=== PATIENT | female | born 1995 | race Caucasian/White ===

== ENCOUNTER → 2018-01-17 11:33 | Outpatient (CLI) | payer OTHER, SELFPAY ==
[2018-01-17 12:27] LABS: Add Manual Diff / Slide Review NO; Basophils Percent Auto 0.7 % (0-2); Eosinophils Percent Auto 2.4 % (2-4); Hematocrit 37.8 % (36-46); Hemoglobin 13.1 g/dL (12.0-16.0); Lymphocytes Percent Auto 23.3 % (25-40); Mean Corpuscular HGB Conc 34.5 % (30-36); Mean Corpuscular Hemoglobin 31.1 PG (26-34); Monocytes Percent Auto 7.5 % (3-14); Neutrophils Absolute Auto 6800 /uL (3000-5900); Neutrophils Percent Auto 66.1 % (50-75); Platelet Count 274 X10^3/uL (150-400); Red Cell Distribution Width 12.8 % (11.6-14.8); White Blood Cell Count 10.3 X10^3/uL (4.5-11.0)
[2018-01-17 16:52] LABS: Hepatitis B Surface Antigen NEGATIVE s/c (NEGATIVE); Rubella Antibody IgG 5.4 IU/mL (>15)
[2018-01-17 17:11] LABS: HIV 1 and 2 Antibody NEGATIVE (NEGATIVE); Hep C Virus Ab w/Reflex Quant NEGATIVE s/c (NEGATIVE)
[2018-01-19 14:20] LABS: HSV 2 IGG AB < 0.90 index (< 0.90); HSV1IGG < 0.90 index (< 0.90)
[2018-01-21 18:20] LABS: Rapid Plasma Reagin NON-REACTIVE
== END ==
PROVIDERS: Visit Provider Family Medicine
DX: Z34.91 Encounter for supervision of normal pregnancy, unspecified, first trimester (principal)
CPT/HCPCS: 36415; 80055; 86695; 86696; 86703; 86787; 86803; 86850; 86900; 86901; 87077; 87086

== ENCOUNTER → 2018-01-31 09:12 | Outpatient (CLI) | payer OTHER, SELFPAY ==
--- NOTE | 2018-01-31 09:15 | DI.US.S_ITS ---
PROCEDURE: US OB LIMITED INDICATIONS: INITIAL SIZING AND DATING OUTSIDE/PRIOR DATING DATA: Last menstrual period (LMP): 10/17/17. LMP-based estimated date of delivery (MIRYAM): 07/24/17 . First dating scan (date and location): 01/31/18 . Estimated date of delivery (MIRYAM) from first dating scan: 07/28/18 TECHNIQUE: Real-time scanning was performed of the fetus, with image documentation. COMPARISON: [facility], US, OB <= 14 WEEKS FETUS, 01/20/2018, 10:54. FINDINGS: A single living intrauterine gestation is present. Presentation: Transverse. Placenta: Placental position is posterior, without previa. Amniotic fluid index: 8.9 cm, normal range is 5-24 cm. heart rate: 153 beats per minute. Maternal cervical canal: 4.3 cm long. Normal lower limit is 2.5 cm. Estimated gestational age from initial scan: 14 weeks 4 days . IMPRESSION: 1. Single, live intrauterine with ultrasound gestational age of 14 weeks 4 days, with ultrasound MIRYAM 07/28/18. 2. Followup ultrasound at 20-22 weeks for dates anatomy. Dictated by: Shagufta Cifuentes M.D. on 01/31/2018 at 11:42 Approved by: Shagufta Cifuentes M.D. on 01/31/2018 at 11:50
== END ==
PROVIDERS: Family Provider Obstetrics & Gynecology; PCP Family Medicine; Visit Provider Family Medicine
DX: Z34.92 Encounter for supervision of normal pregnancy, unspecified, second trimester (principal); Z3A.14 14 weeks gestation of pregnancy
CPT/HCPCS: 76815

== ENCOUNTER → 2018-03-01 12:45 | Outpatient (CLI) | payer OTHER, SELFPAY ==
--- NOTE | 2018-03-01 12:47 | DI.US.S_ITS ---
PROCEDURE: US OB >= 14 WEEKS FETUS INDICATIONS: Anatomy Scan OUTSIDE/PRIOR DATING DATA: Last menstrual period (LMP): 10/17/17. LMP-based estimated date of delivery (MIRYAM): 07/24/17 . First dating scan (date and location): 01/31/18 . Estimated date of delivery (MIRYAM) from first dating scan: 07/28/18. TECHNIQUE: Real-time scanning was performed of the fetus, with image documentation and biometric measurements. Endovaginal scanning: No COMPARISON: [facility], OB LIMITED, 01/31/2018, 9:28. [facility], OB <= 14 WEEKS FETUS, 01/20/2018, 10:54. [facility], ABDOMEN COMPLETE, 10/01/2015, 11:09. [facility], OB COMPLETE LESS THAN 14 WKS, 05/08/2015, 8:22. FINDINGS: General: A single living intrauterine gestation is present. Presentation: Breech. Placenta: Placental position is posterior, without previa. Amniotic fluid index: 12.3 cm, normal range is 5-24 cm. heart rate: 145 beats per minute. Maternal cervical canal: 3.4 cm long. biometrics: Biparietal diameter: 18 weeks 6 days Head circumference: 18 weeks 5 days Abdominal circumference: 18 weeks 5 days Femur length: 18 weeks 3 days Estimated gestational age from initial scan: 18 weeks 5 days Composite gestational age from present scan: 18 weeks 5 days Estimated weight and percentile: 247 g; 37 percentile Measurement variability for biometric dating: +/- 7 days from 14 weeks to 15 weeks 6 days gestation, +/- 10 days from 16 weeks to 21 weeks 6 days gestation, +/- 2 weeks from 22 weeks to 27 weeks 6 days gestation, +/- 3 weeks for 28 weeks gestation or later. weight reference: 4500 g or EFW >90/95% is considered macrosomia or large for gestational age. EFW <10% is small for gestational age. EFW 5% or less is considered intra-uterine growth restriction. Anatomic survey: Neuro: Cisterna magna is normal at 3 mm. Cerebellum is normal in size and morphology. Nuchal skin fold: Not well-seen on this exam. Face: Nose and lips, facial profile are normal. Spine: Imaged portions of the spine demonstrate no evidence for spina bifida. Heart: 4-chambered heart is present, with normal left ventricular outflow tract. Right ventricle outflow tract not well assessed on this exam. Diaphragm: Image diaphragm is intact. Stomach: Left-sided stomach is present. Bladder and kidneys: Not well-seen on this exam. Extremities: All 4 extremities identified. IMPRESSION: Single living intrauterine demonstrating adequate interval growth. Dictated by: [facility] Interpreted: Michael Wooten MD on 03/01/2018 at 15:46 Approved by: Michael Wooten M.D. on 03/01/2018 at 19:19
== END ==
PROVIDERS: PCP Family Medicine; Visit Provider Family Medicine
DX: Z34.92 Encounter for supervision of normal pregnancy, unspecified, second trimester (principal); Z3A.18 18 weeks gestation of pregnancy
CPT/HCPCS: 76811

== ENCOUNTER → 2019-08-17 11:15 | Outpatient (CLI) | payer OTHER, SELFPAY ==
[2019-08-17 12:15] LABS: Add Manual Diff / Slide Review NO; Basophils Absolute Auto 100 /uL (0-100); Basophils Percent Auto 0.5 % (0-2); Eosinophils Absolute Auto 100 /uL (0-450); Eosinophils Percent Auto 1.1 % (2-4); Hemoglobin 13.2 g/dL (12.0-16.0); Lymphocytes Absolute Auto 2700 /uL (1100-4500); Lymphocytes Percent Auto 28.1 % (25-40); Mean Corpuscular HGB Conc 34.7 % (30-36); Mean Corpuscular Hemoglobin 31.4 PG (26-34); Mean Corpuscular Volume 90.3 fL (80-100); Monocytes Absolute Auto 700 /uL (0-900); Monocytes Percent Auto 6.8 % (3-14); Neutrophils Absolute Auto 6000 /uL (1500-7000); Neutrophils Percent Auto 63.5 % (50-75); Platelet Count 296 X10^3/uL (150-400); Red Blood Cell Count 4.21 X10^6/uL (4.0-5.2); Red Cell Distribution Width 12.9 % (11.6-14.8); White Blood Cell Count 9.5 X10^3/uL (4.5-11.0)
[2019-08-17 14:56] LABS: Appearance Urine UA CLEAR; Bilirubin Urine UA NEGATIVE (NEGATIVE); Color Urine UA YELLOW; Glucose Urine UA NEGATIVE (Negative); Ketones Urine UA NEGATIVE (NEGATIVE); Leukocyte Esterase Urine UA NEGATIVE (NEGATIVE); Nitrite Urine UA NEGATIVE (Negative); Occult Blood Urine UA NEGATIVE (Negative); Protein Urine UA NEGATIVE (Negative); Urobilinogen Urine UA 0.2 E.U./dL (0.2)
[2019-08-17 14:58] LABS: pH Urine UA 5.5 (4.5-8.0)
[2019-08-17 16:25] LABS: Hepatitis B Surface Antigen NEGATIVE s/c (NEGATIVE); Rubella Antibody IgG 3.9 IU/mL (>15)
[2019-08-17 16:39] LABS: HIV 1 & 2 Ab/Ag 4th Gen Combo NEGATIVE (NEGATIVE); Hep C Virus Ab w/Reflex Quant NEGATIVE s/c (NEGATIVE)
[2019-08-19 20:33] LABS: RPR Screen Nonreactive (Nonreactive)
== END ==
PROVIDERS: PCP Family Medicine; Referring Provider Family Medicine; Visit Provider Family Medicine
DX: Z34.81 Encounter for supervision of other normal pregnancy, first trimester (principal)
CPT/HCPCS: 36415; 80055; 81003; 86787; 86803; 86850; 86900; 86901; 87086; 87389

== ENCOUNTER 2019-08-24 10:27 | Emergency (ER) | payer OTHER, SELFPAY ==
[2019-08-24 10:36] VITALS: BP 105/57; PULSE 109; RESP 16; TEMP 37.6; O2SAT 100; BMI 26.5
[2019-08-24 10:44] LABS: Add Manual Diff / Slide Review NO; Basophils Absolute Auto 0 /uL (0-100); Basophils Percent Auto 0.3 % (0-2); Eosinophils Absolute Auto 100 /uL (0-450); Eosinophils Percent Auto 1.1 % (2-4); Hematocrit 36.9 % (36-46); Lymphocytes Absolute Auto 600 /uL (1100-4500); Lymphocytes Percent Auto 8.2 % (25-40); Mean Corpuscular HGB Conc 35.2 % (30-36); Mean Corpuscular Hemoglobin 31.1 PG (26-34); Mean Corpuscular Volume 88.5 fL (80-100); Monocytes Absolute Auto 900 /uL (0-900); Monocytes Percent Auto 12.6 % (3-14); Neutrophils Absolute Auto 5300 /uL (1500-7000); Neutrophils Percent Auto 77.8 % (50-75); Platelet Count 235 X10^3/uL (150-400); Red Blood Cell Count 4.18 X10^6/uL (4.0-5.2); Red Cell Distribution Width 13.3 % (11.6-14.8); White Blood Cell Count 6.8 X10^3/uL (4.5-11.0)
[2019-08-24] MEDS: SODIUM CHLORIDE 0.9% 1,000 ML 1000 ML IV ×2 (10:51→12:13)
[2019-08-24] MEDS: ONDANSETRON 4 MG/2 ML INJ IV (10:51)
[2019-08-24 10:56] LABS: Blood Urea Nitrogen 6 mg/dL (7-17); Calcium 9.4 mg/dL (8.4-10.2); Carbon Dioxide 20 mmol/L (22-32); Chloride 105 mmol/L (98-107); Estimated Glomerular Filt Rate > 60.0 mL/min (>60); Glucose 92 mg/dL (70-100); HEMOLYSIS < 15 (0-50); Potassium 3.8 mmol/L (3.4-5.1); Sodium 137 mmol/L (137-145)
[2019-08-24 10:58] LABS: Ketones (Beta-Hydroxybutyrate) 0.09 mmol/L (<0.27)
[2019-08-24 11:50] VITALS: BP 98/54; PULSE 107; RESP 20; O2SAT 97
[2019-08-24 12:20] VITALS: BP 99/51; PULSE 104; RESP 16; O2SAT 99
--- NOTE | 2019-08-24 13:46 | ED_ITS ---
HPI - General Chief complaint: OB/Uterine Contractions Stated complaint: 11 weeks,nausea/shaking/dry heaving Time Seen by Provider: 08/24/19 10:30 Source: patient Mode of arrival: Family Vehicle Limitations: no limitations History of Present Illness HPI Narrative: 24-year-old female nonsmoker is a at 11 weeks with persistent nausea and occasional vomiting. She has had a poor appetite feels a bit fatigued but is not profoundly dizzy, weak or lightheaded. Her primary care provider sent her here for evaluation of dehydration and IV fluid administration. She denies any abdominal pain, pelvic pain nor vaginal bleeding or discharge. She has no dysuria, frequency or urgency Onset (ago): day(s) Associated symptoms: nausea and vomiting Vaginal discharge: none Vaginal bleeding: none Related Data Home Medications Medication Instructions Recorded Confirmed prenat.vits,meir,[id number] 1 tab PO DAILY 08/06/19 08/24/19 doxylamine succinate [Unisom 25 mg PO BEDTIME PRN 08/24/19 08/24/19 (doxylamine)] vitamin B complex 1 tab PO BEDTIME 08/24/19 08/24/19 Previous Rx's Medication Instructions Recorded ondansetron 4 mg PO TID-QID PRN #10 tab 08/24/19 ondansetron 4 mg disintegrating 4 mg PO Q6H PRN #30 tab 08/24/19 tablet Allergies Allergy/AdvReac Type Severity Reaction Status Date / Time Sulfa (Sulfonamide Allergy Intermediate Hives Verified 08/24/19 10:43 Antibiotics) [SULFA (SULFONAMIDE ANTIBIOTICS)] albuterol Allergy Mild Hyperventil Verified 08/24/19 10:43 ates caffeine Allergy Mild Very mild Verified 08/24/19 10:43 - has some now and then lactose Allergy Mild GI Upset Verified 08/24/19 10:43 Review of Systems Constitutional Constitutional: Denies chills, Denies fatigue, Denies fever(s), Denies frequent falls, Denies lethargy and Denies weakness Eyes Eyes: Denies change in vision, Denies eye discharge, Denies irritation and D enies loss of vision ENT Ears, Nose, Mouth, and Throat: Denies change in voice, Denies dizziness, Denies neck pain, Denies sore throat and Denies throat swelling Cardiovascular Cardiovascular: Denies chest pain, Denies irregular heart rhythm, Denies lightheadedness, Denies palpitations, Denies dyspnea, Denies dyspnea on exertion and Denies orthopnea Respiratory Respiratory: Denies cough, Denies dyspnea, Denies dyspnea on exertion and Denies wheezing Gastrointestinal Gastrointestinal: Denies abdominal pain, Denies change in bowel habits, Denies diarrhea, Denies nausea and Denies vomiting Genitourinary Genitourinary: Denies hematuria, Denies flank pain, Denies urinary incontinence and Denies urinary urgency Musculoskeletal Musculoskeletal: Denies back pain, Denies muscle weakness, Denies neck pain, De nies numbness and Denies tingling Integumentary/Breasts Skin/Breast: Denies pruritus, Denies erythema, Denies rash and Denies wounds Neurologic Neurologic: Denies behavioral changes, Denies confusion, Denies dizziness, Denies frequent falls, Denies loss of vision, Denies numbness, Denies tingling and Denies weakness Psychiatric Psychiatric: Denies anxiety, Denies behavioral changes, Denies confusion, Denies depression, Denies homicidal ideation and Denies suicidal ideation Endocrine Endocrine: Denies fatigue, Denies flushing and Denies palpitations Hematologic/Lymphatic Hematologic/Lymphatic: Denies easy bruising Allergic/Immunologic Allergic/Immunologic: Denies urticaria, Denies throat swelling and Denies wheezing Exam Narrative Exam Narrative: GENERAL: [24] year old patient appears stated age. Well- nourished, well-developed patient, in mild distress. HEAD: Atraumatic. Normocephalic. EYES: Pupils equal round and reactive. Extraocular motions intact. No scleral icterus. No injection or drainage. ENT: Tacky mucous membranes Nose without bleeding, purulent drainage. Throat without erythema, tonsillar hypertrophy or exudate. Airway patent. NECK: Trachea midline. Non tender CARDIOVASCULAR: Regular rate and rhythm without murmurs, gallops, or rubs. RESPIRATORY: Clear to auscultation. Breath sounds equal bilaterally. No wheezes, rales, or rhonchi. GASTROINTESTINAL: Abdomen soft, non-tender, nondistended. EXTREMITIES: No edema or joint tenderness. BACK: Nontender without deformity or crepitance. No flank tenderness. NEURO: AOx3. SKIN: No rash or erythema of visible areas Initial Vital Signs Initial Vital Signs: Vital Signs Temperature 99.7 F H 08/24/19 10:36 Pulse Rate 109 H 08/24/19 10:36 Respiratory Rate 16 08/24/19 10:36 Blood Pressure 105/57 L 08/24/19 10:36 Pulse Oximetry 100 08/24/19 10:36 Course Orders Ordered: ED Orders 08/24/19 10:33 Basic Metabolic Panel Stat Complete Blood Count AUTO DIFF Stat Ketones (Beta-Hydroxybutyrate) Stat Discontinued Medications Sodium Chloride (Normal Saline 0.9%) 1,000 mls @ 1,000 mls/hr IV BOLUS ONE Stop: 08/24/19 11:50 Last Infusion: 08/24/19 12:07 Dose: 0 mls/hr Documented by: Admin: 08/24/19 10:51 Dose: 1,000 mls/hr Documented by: ELIZABETH Sodium Chloride (Normal Saline 0.9%) 1,000 mls @ 1,000 mls/hr IV BOLUS ONE Stop: 08/24/19 13:06 Last Infusion: 08/24/19 13:15 Dose: 0 mls/hr Documented by: Admin: 08/24/19 12:13 Dose: 1,000 mls/hr Documented by: EILZABETH Ondansetron HCl (Zofran) 4 mg IV NOW ONE Stop: 08/24/19 10:34 Last Admin: 08/24/19 10:51 Dose: 4 mg Documented by: ELIZABETH Vital Signs Vital signs: Vital Signs - 8 hr 08/24/19 11:50 08/24/19 12:20 08/24/19 14:10 Pulse Rate 107 H 104 H 96 H Respiratory Rate 20 16 18 Blood Pressure 95/53 L Blood Pressure [Right Arm] 98/54 L 99/51 L Pulse Oximetry 97 99 100 MDM - OB/Uterine Contractions Lab Data Result diagrams: 08/24/19 10:33 08/24/19 10:33 Labs: Lab Results 08/24/19 08/24/19 Range/Units 10:33 10:33 WBC 6.8 (4.5-11.0) X10^3/uL RBC 4.18 (4.0-5.2) X10^6/uL Hgb 13.0 (12.0-16.0) g/dL Hct 36.9 (36-46) % MCV 88.5 (80-100) fL MCH 31.1 (26-34) PG MCHC 35.2 (30-36) % RDW 13.3 (11.6-14.8) % Plt Count 235 (150-400) X10^3/uL Neut % (Auto) 77.8 H (50-75) % Lymph % (Auto) 8.2 L (25-40) % [place] % (Auto) 12.6 (3-14) % Eos % (Auto) 1.1 L (2-4) % Baso % (Auto) 0.3 (0-2) % Neut # (Auto) 5300 (7208-1870) /uL Lymph # (Auto) 600 L (1677-8119) /uL [place] # (Auto) 900 (0-900) /uL Eos # (Auto) 100 (0-450) /uL Baso # (Auto) 0 (0-100) /uL Sodium 137 (137-145) mmol/L Potassium 3.8 (3.4-5.1) mmol/L Chloride 105 (98-107) mmol/L Carbon Dioxide 20 L (22-32) mmol/L BUN 6 L (7-17) mg/dL Creatinine 0.50 L (0.52-1.04) mg/dL Estimated GFR > 60.0 (>60) mL/min BUN/Creatinine Ratio 12.0 (6-22) Glucose 92 (70-100) mg/dL Calcium 9.4 (8.4-10.2) mg/dL Ketones 0.09 (<0.27) mmol/L Urine Dip Bedside Urine Glucose Negative Bedside Urine Bilirubin - Negative Bedside Urine Ketone +++ 80 Urine Specific [place] 1.020 Bedside Urine Occult Blood - Negative Bedside Urine pH 7.0 Bedside Urine Protein +/- 15 Bedside Urine Urobilinogen +/- 1mg Bedside Urine Nitrite - Negative Bedside Urine Leukocytes - Negative Esterase Discharge Plan Departure Patient Disposition: Home Clinical Impression: Vomiting Qualifiers: Vomiting type: unspecified Vomiting Intractability: intractable Nausea presence: with nausea Qualified Code(s): R11.2 - Nausea with vomiting, unspecified Discharge Date/Time: 08/24/19 14:10 Instructions: DI for Hyperemesis Gravidarum, DI for -- Discomforts and Remedies Activity Restrictions/Additional Instructions: 1. Drink plenty of fluids with frequent small sips. 2. For the next 24 hours a clear liquid diet is advised. After that please employ a brat diet which would include bananas, rice, apples, toast. 3. Please take medications as directed. Anti vomiting medication to [facility] in [place] 4. Please follow-up with your doctor in the next 1-2 days. Call the office for an appointment. 5. Please return to the emergency Department for any worsening or persistent symptoms, such as increasing pain or fever. Prescriptions: New ondansetron 4 mg tablet,disintegrating 4 mg PO TID-QID PRN (Reason: nausea and vomiting) Qty: 10 RF: 0 No Action ondansetron 4 mg tablet,disintegrating 4 mg PO Q6H PRN (Reason: nausea and vomiting) Qty: 30 RF: 3 prenat.vits,meir,[id number] Tablet 1 tab PO DAILY RF: 0 vitamin B complex Tablet 1 tab PO BEDTIME RF: 0 Unisom (doxylamine) 25 mg Tablet 25 mg PO BEDTIME PRN (Reason: Nausea) RF: 0 Referrals: Ruma Watkins MD [Primary Care Provider] -
[2019-08-24 14:10] VITALS: BP 95/53; PULSE 96; RESP 18; O2SAT 100
== END 2019-08-24 14:10 | disposition home or self-care (01) ==
PROVIDERS: Emergency Provider Emergency Medicine; PCP Family Medicine
DX: O26.891 Other specified pregnancy related conditions, first trimester (principal); R11.2 Nausea with vomiting, unspecified; Z3A.11 11 weeks gestation of pregnancy
CPT/HCPCS: 36415; 80048; 81003; 82009; 85025; 96361; 96374; 99284; J2405

== ENCOUNTER 2019-08-25 08:46 | Emergency (ER) | payer OTHER, SELFPAY ==
[2019-08-25 09:36] VITALS: BP 96/54; PULSE 123; RESP 14; TEMP 37.7; O2SAT 99
[2019-08-25] MEDS: SODIUM CHLORIDE 0.9% 1,000 ML 1000 ML IV (09:50)
[2019-08-25 10:05] LABS: Influenza A - CEPHEID Flu A POSITIVE (NEGATIVE); Influenza B - CEPHEID Flu B NEGATIVE (NEGATIVE)
--- NOTE | 2019-08-25 10:11 | ED_ITS ---
HPI - Fever General Chief Complaint: Fever Stated Complaint: Sent from [facility], fever,headache, sore throat Time Seen by Provider: 08/25/19 08:52 Source: patient and family Mode of arrival: Ambulatory Limitations: no limitations History of Present Illness HPI Narrative: 24-year-old female nonsmoker at 11 weeks returns for worsening symptoms. She was seen yesterday for nausea and some questionable dehydration and had a reassuring workup, received 2 L of fluid felt better and went home. Over the course of the night she developed a fever as high as 102 with dry hacking cough sore throat and body aches. She presented to the walk-in clinic today and was sent here for further evaluation. She denies any vomiting, abdominal pain or diarrhea. She has no vaginal bleeding or discharge. She has no suprapubic tenderness or flank pain. She denies dysuria, frequency or urgency. MD complaint: fever and malaise Onset (ago): hour(s) Maximum Temperature: 102.4 F Temperature Source: oral Associated symptoms: chills, myalgias, headache, sore throat and cough Relieving factors: nothing Exacerbating factors: nothing Treatments prior to arrival fever: acetaminophen Related Data Home Medications Medication Instructions Recorded Confirmed prenat.vits,meir,[id number] 1 tab PO DAILY 08/06/19 08/24/19 doxylamine succinate [Unisom 25 mg PO BEDTIME PRN 08/24/19 08/24/19 (doxylamine)] vitamin B complex 1 tab PO BEDTIME 08/24/19 08/24/19 Previous Rx's Medication Instructions Recorded ondansetron 4 mg PO TID-QID PRN #10 tab 08/24/19 ondansetron 4 mg disintegrating 4 mg PO Q6H PRN #30 tab 08/24/19 tablet oseltamivir [Tamiflu] 75 mg PO BID 5 Days #10 cap 08/25/19 Allergies Allergy/AdvReac Type Severity Reaction Status Date / Time Sulfa (Sulfonamide Allergy Intermediate Hives Verified 08/24/19 10:43 Antibiotics) [SULFA (SULFONAMIDE ANTIBIOTICS)] albuterol Allergy Mild Hyperventil Verified 08/24/19 10:43 ates caffeine Allergy Mild Very mild Verified 08/24/19 10:43 - has some now and then lactose Allergy Mild GI Upset Verified 08/24/19 10:43 Review of Systems Constitutional Constitutional: Reports chills, Denies fatigue, Reports fever(s), Denies frequent falls, Reports headache(s), Denies lethargy and Denies weakness Eyes Eyes: Denies change in vision, Denies eye discharge, Denies irritation and Denies loss of vision ENT Ears, Nose, Mouth, and Throat: Denies change in voice, Denies dizziness, Reports headache(s), Reports sore throat and Denies throat swelling Cardiovascular Cardiovascular: Denies chest pain, Denies irregular heart rhythm, Denies lightheadedness, Denies palpitations, Denies dyspnea, Denies dyspnea on exertion and Denies orthopnea Respiratory Respiratory: Reports cough, Denies dyspnea, Denies dyspnea on exertion and Denies wheezing Gastrointestinal Gastrointestinal: Denies abdominal pain, Denies change in bowel habits, Denies diarrhea, Denies nausea and Denies vomiting Genitourinary Genitourinary: Denies hematuria, Denies flank pain, Denies urinary incontinence and Denies urinary urgency Musculoskeletal Musculoskeletal: Denies back pain, Denies muscle weakness, Denies numbness and Denies tingling Integumentary/Breasts Skin/Breast: Denies pruritus, Denies erythema, Denies rash and Denies wounds Neurologic Neurologic: Denies behavioral changes, Denies confusion, Denies dizziness, Denies frequent falls, Reports headache(s), Denies loss of vision, Denies numbness, Denies tingling and Denies weakness Psychiatric Psychiatric: Denies anxiety, Denies behavioral changes, Denies confusion, Denies depression, Denies homicidal ideation and Denies suicidal ideation Endocrine Endocrine: Denies fatigue, Denies flushing and Denies palpitations Hematologic/Lymphatic Hematologic/Lymphatic: Denies easy bruising Allergic/Immunologic Allergic/Immunologic: Denies urticaria, Denies throat swelling and Denies wheezing Patient History Medical History Anxiety (Acute) Constipation (Acute) Lactose intolerance (Acute) Family History Mother Gestational diabetes Family/Other Gestational diabetes Grandmother Non Hodgkin's lymphoma Grandfather Colon cancer Family/Other Cancer of kidney Family/Other Melanoma Father PTSD (post-traumatic stress disorder) Brother Depression Anxiety ADHD Eczema Sister Eczema Social History marital status: household members: spouse, family and children education level: high school (wants to go to Nursing School) occupational status: unemployed and previously employed ([employer] ) current occupational exposures/hazards: No special lorraine needs: No Smoking Status: Never smoker Smoking Status: Never smoker alcohol intake frequency: 0-2 drinks per day Substance Use Type: does not use Exam Narrative Exam Narrative: GENERAL: [24] year old patient appears stated age. Well- nourished, well-developed patient, in mild distress. HEAD: Atraumatic. Normocephalic. EYES: Pupils equal round and reactive. Extraocular motions intact. No scleral icterus. No injection or drainage. ENT: Moist mucous membranes Nose without bleeding, purulent drainage. Throat with mild erythema, but no tonsillar hypertrophy or exudate. Airway patent. NECK: Trachea midline. Non tender CARDIOVASCULAR: Tachycardic with regular rhythm without murmurs, gallops, or rubs. RESPIRATORY: Clear to auscultation. Breath sounds equal bilaterally. No wheezes, rales, or rhonchi. GASTROINTESTINAL: Abdomen soft, non-tender, nondistended. EXTREMITIES: No edema or joint tenderness. BACK: Nontender without deformity or crepitance. No flank tenderness. NEURO: AOx3. SKIN: No rash or erythema of visible areas Initial Vital Signs Initial Vital Signs: Vital Signs Temperature 99.8 F H 08/25/19 09:36 Pulse Rate 123 H 08/25/19 09:36 Respiratory Rate 14 08/25/19 09:36 Blood Pressure 96/54 L 08/25/19 09:36 Pulse Oximetry 99 08/25/19 09:36 Course Orders Ordered: ED Orders 08/25/19 09:30 Influenza A & B (PCR) Stat 08/25/19 09:50 Basic Metabolic Panel Stat Complete Blood Count AUTO DIFF Stat 08/25/19 10:14 Throat Culture Stat 08/25/19 10:18 Lactate (Lactic Acid) Stat 08/25/19 10:30 Urine Microscopic Stat Discontinued Medications Sodium Chloride (Normal Saline 0.9%) 1,000 mls @ 1,000 mls/hr IV BOLUS ONE Stop: 08/25/19 09:51 Last Infusion: 08/25/19 11:26 Dose: 0 mls/hr Documented by: Admin: 08/25/19 09:50 Dose: 1,000 mls/hr Documented by: PANDA Vital Signs Vital signs: Vital Signs - 8 hr 08/25/19 11:26 Temperature 98.3 F Pulse Rate 93 H Blood Pressure [Left Arm] 92/50 L Pulse Oximetry 99 MDM - Fever Lab Data Result diagrams: 08/25/19 09:50 08/25/19 09:50 Labs: Lab Results 08/25/19 08/25/19 08/25/19 Range/Units 09:30 09:50 09:50 WBC 3.3 L D (4.5-11.0) X10^3/uL RBC 3.51 L (4.0-5.2) X10^6/uL Hgb 11.0 L (12.0-16.0) g/dL Hct 31.4 L (36-46) % MCV 89.4 (80-100) fL MCH 31.4 (26-34) PG MCHC 35.1 (30-36) % RDW 12.9 (11.6-14.8) % Plt Count 175 (150-400) X10^3/uL Neut % (Auto) Not Reportable Lymph % (Auto) Not Reportable [place] % (Auto) Not Reportable Eos % (Auto) Not Reportable Baso % (Auto) Not Reportable Lymph # (Auto) Not Reportable [place] # (Auto) Not Reportable Baso # (Auto) Not Reportable Total Counted 100 Seg Neutrophils % 76.0 H (38-70) % Lymphocytes % (Manual) 10.0 L (25-45) % Monocytes % (Manual) 14.0 H (2-11) % Neutrophils # (Manual) 2508 L (8336-2829) /uL [place] Cells 1+ H RBC Morphology See below Anisocytosis 1+ H Sodium 135 L (137-145) mmol/L Potassium 3.2 L (3.4-5.1) mmol/L Chloride 105 (98-107) mmol/L Carbon Dioxide 17 L (22-32) mmol/L BUN 7 (7-17) mg/dL Creatinine 0.60 (0.52-1.04) mg/dL Estimated GFR > 60.0 (>60) mL/min BUN/Creatinine Ratio 11.7 (6-22) Glucose 103 H (70-100) mg/dL Lactate (0.7-2.1) mmol/L Calcium 8.7 (8.4-10.2) mg/dL Urine RBC (0-5/HPF) Urine WBC (0-5/HPF) Ur Squamous Epith Cells (0-5/HPF) Urine Bacteria (None) Urine Mucus (Negative) Ur Culture Indicated? Influenza A (RT-PCR) Flu a positive H (NEGATIVE) Influenza B (RT-PCR) Flu b negative (NEGATIVE) 08/25/19 08/25/19 Range/Units 10:18 10:30 WBC (4.5-11.0) X10^3/uL RBC (4.0-5.2) X10^6/uL Hgb (12.0-16.0) g/dL Hct (36-46) % MCV (80-100) fL MCH (26-34) PG MCHC (30-36) % RDW (11.6-14.8) % Plt Count (150-400) X10^3/uL Neut % (Auto) Lymph % (Auto) [place] % (Auto) Eos % (Auto) Baso % (Auto) Lymph # (Auto) [place] # (Auto) Baso # (Auto) Total Counted Seg Neutrophils % (38-70) % Lymphocytes % (Manual) (25-45) % Monocytes % (Manual) (2-11) % Neutrophils # (Manual) (5901-1176) /uL [place] Cells RBC Morphology Anisocytosis Sodium (137-145) mmol/L Potassium (3.4-5.1) mmol/L Chloride (98-107) mmol/L Carbon Dioxide (22-32) mmol/L BUN (7-17) mg/dL Creatinine (0.52-1.04) mg/dL Estimated GFR (>60) mL/min BUN/Creatinine Ratio (6-22) Glucose (70-100) mg/dL Lactate 0.8 (0.7-2.1) mmol/L Calcium (8.4-10.2) mg/dL Urine RBC None seen (0-5/HPF) Urine WBC 5-10/hpf H (0-5/HPF) Ur Squamous Epith Cells 5-10 /hpf H (0-5/HPF) Urine Bacteria None seen (None) Urine Mucus 3+ H (Negative) Ur Culture Indicated? Cult not indicated Influenza A (RT-PCR) (NEGATIVE) Influenza B (RT-PCR) (NEGATIVE) Point of Care Testing Rapid Strep A Negative Urine Dip Bedside Urine Glucose Negative Bedside Urine Bilirubin - Negative Bedside Urine Ketone +++ 80 Urine Specific [place] 1.030 Bedside Urine Occult Blood - Negative Bedside Urine pH 5.5 Bedside Urine Protein + 30 Bedside Urine Urobilinogen +/- 1mg Bedside Urine Nitrite - Negative Bedside Urine Leukocytes - Negative Esterase Discharge Plan Departure Patient Disposition: Home Clinical Impression: Influenza A Discharge Date/Time: 08/25/19 11:32 Instructions: DI for Influenza -- Adult Activity Restrictions/Additional Instructions: *You have been diagnosed with [influenza a] *What to do: *Take medications as directed: Tamiflu sent to [facility] *Follow up with your primary care provider in 2-3 days, call for an appointment. Let them know you were seen in the Emergency Department and that we ask that you be seen in follow up *Return to ER if you should have any new, worsening or concerning symptoms Prescriptions: New oseltamivir [Tamiflu] 75 mg capsule 75 mg PO BID 5 Days Qty: 10 RF: 0 No Action ondansetron 4 mg tablet,disintegrating 4 mg PO Q6H PRN (Reason: nausea and vomiting) Qty: 30 RF: 3 prenat.vits,meir,[id number] Tablet 1 tab PO DAILY RF: 0 vitamin B complex Tablet 1 tab PO BEDTIME RF: 0 Unisom (doxylamine) 25 mg Tablet 25 mg PO BEDTIME PRN (Reason: Nausea) RF: 0 ondansetron 4 mg tablet,disintegrating 4 mg PO TID-QID PRN (Reason: nausea and vomiting) Qty: 10 RF: 0 Referrals: Ruma Watkins MD [Primary Care Provider] -
[2019-08-25 10:16] LABS: Hematocrit 31.4 % (36-46); Mean Corpuscular HGB Conc 35.1 % (30-36); Mean Corpuscular Hemoglobin 31.4 PG (26-34); Mean Corpuscular Volume 89.4 fL (80-100); Platelet Count 175 X10^3/uL (150-400); Red Blood Cell Count 3.51 X10^6/uL (4.0-5.2); Red Cell Distribution Width 12.9 % (11.6-14.8); White Blood Cell Count 3.3 X10^3/uL (4.5-11.0)
[2019-08-25 10:17] LABS: Add Manual Diff / Slide Review YES
[2019-08-25 10:18] LABS: BUN Creatinine Ratio 11.7 (6-22); Blood Urea Nitrogen 7 mg/dL (7-17); Calcium 8.7 mg/dL (8.4-10.2); Carbon Dioxide 17 mmol/L (22-32); Chloride 105 mmol/L (98-107); Estimated Glomerular Filt Rate > 60.0 mL/min (>60); Glucose 103 mg/dL (70-100); HEMOLYSIS < 15 (0-50); Potassium 3.2 mmol/L (3.4-5.1); Sodium 135 mmol/L (137-145)
--- NOTE | 2019-08-25 10:30 | PC.NURSE ---
pt 11 wks ,here yesterday for nausea/vomiting. Today she has a fever,denies cough or sore throat. Pt nauseated today with fever and not feeling well at all.
[2019-08-25 10:44] LABS: Lactate (Lactic Acid) 0.8 mmol/L (0.7-2.1)
[2019-08-25 10:51] LABS: Bacteria Urine None Seen; RBC Urine None Seen (0-5/HPF)
[2019-08-25 10:58] LABS: Culture Indicated Urine Cult Not Indicated; Mucus Urine 3+ (Negative); Squamous Epithelial Cell Urine 5-10 /HPF (0-5/HPF); WBC Urine 5-10/HPF (0-5/HPF)
[2019-08-25 11:26] VITALS: BP 92/50; PULSE 93; TEMP 36.8; O2SAT 99
[2019-08-25 12:03] LABS: Neutrophils Absolute Manual 2508 /uL (3000-5900); Smudge Cells 1+; Total Cells Counted 100
[2019-08-25 12:04] LABS: Anisocytosis 1+
== END 2019-08-25 11:32 | disposition home or self-care (01) ==
PROVIDERS: Emergency Provider Emergency Medicine; PCP Family Medicine
DX: J10.1 Influenza due to other identified influenza virus with other respiratory manifestations (principal)
CPT/HCPCS: 36415; 80048; 81003; 81015; 83605; 85025; 87040; 87070; 87077; 87147; 87502; 87880; 96360; 96361; 99284

== ENCOUNTER 2019-09-17 21:17 | Emergency (ER) | payer OTHER, SELFPAY ==
[2019-09-17 21:31] VITALS: BP 116/75; PULSE 63; RESP 18; TEMP 36.8; O2SAT 100; BMI 25.7
--- NOTE | 2019-09-17 21:31 | ED.GENADULT ---
HPI - General Adult General Chief complaint: Chest Pain Stated complaint: CHEST PAIN TOWARDS BACK AND STOMACH 14 WKS PREGNAN Time Seen by Provider: 09/17/19 21:27 Source: patient Mode of arrival: Ambulatory Limitations: no limitations History of Present Illness HPI narrative: Patient is a 14 week female here for evaluation of pain in her back radiating around to the front. She states the symptoms were fairly sudden onset. She was eating at the time. Occurred just prior to arrival. Has never had anything like this in the past. No vaginal bleeding or discharge. No urinary symptoms. Some nausea but no vomiting. No fevers. Has not tried anything for symptoms prior to arrival Related Data Home Medications Medication Instructions Recorded Confirmed prenat.vits,meir,[id number] 1 tab PO DAILY 08/06/19 08/24/19 doxylamine succinate [Unisom 25 mg PO BEDTIME PRN 08/24/19 08/24/19 (doxylamine)] vitamin B complex 1 tab PO BEDTIME 08/24/19 08/24/19 Previous Rx's Medication Instructions Recorded ondansetron 4 mg disintegrating 4 mg PO Q6H PRN #30 tab 08/24/19 tablet oseltamivir [Tamiflu] 75 mg PO BID 5 Days #10 cap 08/25/19 ondansetron 4 mg disintegrating 4 mg PO TID-QID PRN #10 tab 09/05/19 tablet Allergies Allergy/AdvReac Type Severity Reaction Status Date / Time Sulfa (Sulfonamide Allergy Intermediate Hives Verified 08/24/19 10:43 Antibiotics) [SULFA (SULFONAMIDE ANTIBIOTICS)] albuterol Allergy Mild Hyperventil Verified 08/24/19 10:43 ates caffeine Allergy Mild Very mild Verified 08/24/19 10:43 - has some now and then lactose Allergy Mild GI Upset Verified 08/24/19 10:43 Review of Systems Constitutional Constitutional: Denies fever(s) Cardiovascular Cardiovascular: Reports chest pain and Denies dyspnea Respiratory Respiratory: Denies dyspnea Gastrointestinal Gastrointestinal: Reports abdominal pain, Reports nausea and Denies vomiting Genitourinary Genitourinary: Denies dysuria and Denies vaginal discharge Musculoskeletal Musculoskeletal: Denies myalgias and Denies arthralgias Integumentary/Breasts Skin/Breast: Denies rash Neurologic Neurologic: Denies behavioral changes Psychiatric Psychiatric: Denies behavioral changes Hematologic/Lymphatic Hematologic/Lymphatic: Denies easy bleeding and Denies easy bruising Patient History Medical History Anxiety (Acute) Constipation (Acute) Lactose intolerance (Acute) Social History marital status: household members: spouse, family and children education level: high school (wants to go to Nursing School) occupational status: unemployed and previously employed ([employer] and [employer] ) current occupational exposures/hazards: No special lorraine needs: No Smoking Status: Never smoker Smoking Status: Never smoker alcohol intake frequency: 0-2 drinks per day Substance Use Type: does not use Exam Initial Vital Signs Initial Vital Signs: Vital Signs Temperature 98.3 F 09/17/19 21:31 Pulse Rate 63 09/17/19 21:31 Respiratory Rate 18 09/17/19 21:31 Blood Pressure 116/75 09/17/19 21:31 Pulse Oximetry 100 09/17/19 21:31 Const General: cooperative and comfortable Limitations: mental status not altered HENMT Head: normal to inspection and normocephalic Resp Effort & Inspection: normal respiratory effort Auscultation: clear to auscultation bilaterally Cardio Rate: regular rate Rhythm: regular rhythm GI Inspection: non-distended Palpation: soft and tender (Upper abdomen) Back/Spine/Pelvis Thoracic/Lumbar Spine: No paraspinal tenderness, No thoracic spinal tenderness and No lumbar spinal tenderness Skin Lesions: no lesions Rashes: no rashes Neuro General: alert and awake Cognition: normal cognition Speech: speech normal Extrem General: normal to inspection and capillary refill normal Course Orders Ordered: ED Orders 09/17/19 21:31 EKG-12 Lead Stat 09/17/19 21:35 Complete Blood Count AUTO DIFF Stat Comprehensive Metabolic Panel Stat Lipase Stat 09/17/19 21:39 US abdomen limited Stat Discontinued Medications Hydrocodone Bitart/Acetaminophen (Vicodin 5/325 Prepack) 1 bottle MISC SEEINSTR ONE Stop: 09/18/19 00:17 Last Admin: 09/18/19 00:27 Dose: 1 bottle Documented by: KARI Sodium Chloride (Normal Saline 0.9%) 1,000 mls @ 1,000 mls/hr IV BOLUS ONE Stop: 09/17/19 22:37 Last Infusion: 09/17/19 23:06 Dose: 0 mls/hr Documented by: Admin: 09/17/19 21:54 Dose: 1,000 mls/hr Documented by: KRISTY Morphine Sulfate (Morphine) 4 mg IV NOW ONE Stop: 09/17/19 21:39 Last Admin: 09/17/19 21:55 Dose: 4 mg Documented by: KRISTY Morphine Sulfate (Morphine) 4 mg IV NOW ONE Stop: 09/17/19 22:25 Last Admin: 09/17/19 22:32 Dose: 4 mg Documented by: ELIJAH Ondansetron HCl (Zofran) 4 mg IV NOW ONE Stop: 09/17/19 21:39 Last Admin: 09/17/19 21:54 Dose: 4 mg Documented by: KRISTY Vital Signs Vital signs: Vital Signs - 8 hr 09/17/19 21:31 09/17/19 21:50 09/17/19 22:33 Temperature 98.3 F Pulse Rate 63 85 63 Respiratory Rate 18 24 24 Blood Pressure 116/75 Blood Pressure [Right Arm] 116/70 96/67 Pulse Oximetry 100 99 96 09/18/19 00:41 Temperature Pulse Rate 79 Respiratory Rate 20 Blood Pressure 101/55 L Blood Pressure [Right Arm] Pulse Oximetry 99 Medical Decision Making Lab Data Lab results reviewed: Yes I reviewed the patient's lab results. Result diagrams: 09/17/19 21:35 09/17/19 21:35 Labs: Lab Results 09/17/19 09/17/19 Range/Units 21:35 21:35 WBC 11.7 H (4.5-11.0) X10^3/uL RBC 3.90 L (4.0-5.2) X10^6/uL Hgb 12.1 (12.0-16.0) g/dL Hct 34.6 L (36-46) % MCV 88.8 (80-100) fL MCH 31.0 (26-34) PG MCHC 35.0 (30-36) % RDW 13.3 (11.6-14.8) % Plt Count 282 (150-400) X10^3/uL Neut % (Auto) 57.6 (50-75) % Lymph % (Auto) 32.2 (25-40) % Pierce % (Auto) 8.1 (3-14) % Eos % (Auto) 1.4 L (2-4) % Baso % (Auto) 0.7 (0-2) % Neut # (Auto) 6800 (5787-9878) /uL Lymph # (Auto) 3800 (2529-0368) /uL Pierce # (Auto) 1000 H (0-900) /uL Eos # (Auto) 200 (0-450) /uL Baso # (Auto) 100 (0-100) /uL Sodium 135 L (137-145) mmol/L Potassium 3.7 (3.4-5.1) mmol/L Chloride 102 (98-107) mmol/L Carbon Dioxide 24 (22-32) mmol/L BUN 9 (7-17) mg/dL Creatinine 0.78 (0.52-1.04) mg/dL Estimated GFR > 60.0 (>60) mL/min BUN/Creatinine Ratio 11.5 (6-22) Glucose 107 H (70-100) mg/dL Calcium 9.8 (8.4-10.2) mg/dL Total Bilirubin 0.3 (0.2-1.3) mg/dL AST 25 (14-36) IU/L ALT 37 H (<35) IU/L Alkaline Phosphatase 58 (38-126) U/L Total Protein 7.9 (6.3-8.2) g/dL Albumin 4.6 (3.5-5.0) g/dL Globulin 3.3 (1.7-4.1) g/dL Albumin/Globulin Ratio 1.4 (1.0-2.8) Lipase 86 (23-300) U/L Urine Dip Bedside Urine Glucose Negative Bedside Urine Bilirubin - Negative Bedside Urine Ketone + 15 Urine Specific [place] 1.015 Bedside Urine Occult Blood - Negative Bedside Urine pH 7.5 Bedside Urine Protein +/- 15 Bedside Urine Urobilinogen 1+ 2mg Bedside Urine Nitrite - Negative Bedside Urine Leukocytes - Negative Esterase Point of care testing: Urine Dip Bedside Urine Glucose Negative Bedside Urine Bilirubin - Negative Bedside Urine Ketone + 15 Urine Specific [place] 1.015 Bedside Urine Occult Blood - Negative Bedside Urine pH 7.5 Bedside Urine Protein +/- 15 Bedside Urine Urobilinogen 1+ 2mg Bedside Urine Nitrite - Negative Bedside Urine Leukocytes - Negative Esterase Imaging Data US - abdomen: Radiologist's Impression: Gallbladder stones and sludge with sonographic Chaidez sign. The possibility of cholecystitis is raise. No biliary ductal dilation ECG Data Attestation: I personally reviewed and interpreted this ECG as follows: Prior ECG tracings: not available for review Interpretation: Sinus bradycardia Ventricular rate of 52 Normal axis Normal QRS Normal QTC No ST T wave changes MDM Narrative Medical decision making narrative: Patient reported vast improvement of symptoms after pain medication. She has no symptoms consistent with any pre term labor. Upon further evaluation it does appear that her symptoms are in her upper abdomen. The ultrasound does show gallbladder sludge and gallstones however no signs of wall thickening or common bile duct thickening. Patient did have a sonographic Chaidez sign. Her LFTs are unremarkable. Lipase is unremarkable. I do suspect that her symptoms are biliary colic. Given the fact that she has unremarkable LFTs and no thickening of the gallbladder wall that her symptoms are controlled with medications the patient could be discharged and follow-up as an outpatient to discuss potential surgical interventions. She was given phone number for the surgery group. She was also instructed to contact her OB provider. She was given return precautions and also dietary restrictions. She expressed understanding and agreed. Discharge Plan Departure Patient Disposition: Home Clinical Impression: Biliary colic Discharge Date/Time: 09/18/19 00:45 Instructions: DI for Biliary Colic Activity Restrictions/Additional Instructions: Recommend that tomorrow you contact your OB provider for a follow-up. I also recommend you contact [facility] at [phone]. It does appear that you have gallbladder disease. Recommend that you avoid foods that are high in fat and oil. Use the nausea medication you have at home as needed. Your child is exposed to any medication that you take so we advised that she to limit the amount pain medication that you are taking as much as possible. Return to the emergency department for any new symptoms to include fevers, pain is not controlled with the medicines, inability to tolerate oral intake or any other new or worsening symptoms Prescriptions: No Action ondansetron 4 mg tablet,disintegrating 4 mg PO Q6H PRN (Reason: nausea and vomiting) Qty: 30 RF: 3 ondansetron 4 mg tablet,disintegrating 4 mg PO TID-QID PRN (Reason: nausea and vomiting) Qty: 10 RF: 0 prenat.vits,meir,[id number] Tablet 1 tab PO DAILY RF: 0 oseltamivir [Tamiflu] 75 mg capsule 75 mg PO BID 5 Days Qty: 10 RF: 0 vitamin B complex Tablet 1 tab PO BEDTIME RF: 0 Unisom (doxylamine) 25 mg Tablet 25 mg PO BEDTIME PRN (Reason: Nausea) RF: 0 Referrals: Ruma Watkins MD [Primary Care Provider] -
--- NOTE | 2019-09-17 21:39 | DI.US.S_ITS ---
PROCEDURE: US ABDOMEN LIMITED INDICATIONS: RUQ US EVAL FOR GB PATHOLOGY, RUQ PAIN TECHNIQUE: Real-time focused scanning was performed of the abdomen, with image documentation. COMPARISON: None. FINDINGS: Liver is normal in length 17 cm, and normal in echotexture. No intrahepatic biliary distention is present. Within the gallbladder sludge and small stones are present and there is tenderness during sonographic palpation exactly over the gallbladder. The gallbladder wall, however, is not thickened at 1.5 mm and the gallbladder fossa does not contain abnormal free fluid. IMPRESSION: Sludge and small stones are present within the gallbladder lumen, but no definite acute cholecystitis is present. However, there is tenderness during focal palpation over the gallbladder and for this reason an early manifestation of acute cholecystitis remains possible. No biliary distention is associated. Dictated by: Reagan Peguero M.D. on 09/18/2019 at 8:18 Approved by: Reagan Peguero M.D. on 09/18/2019 at 8:20
[2019-09-17 21:50] VITALS: BP 116/70; PULSE 85; RESP 24; O2SAT 99
[2019-09-17 21:50] LABS: Add Manual Diff / Slide Review NO; Basophils Absolute Auto 100 /uL (0-100); Basophils Percent Auto 0.7 % (0-2); Eosinophils Absolute Auto 200 /uL (0-450); Eosinophils Percent Auto 1.4 % (2-4); Hematocrit 34.6 % (36-46); Hemoglobin 12.1 g/dL (12.0-16.0); Lymphocytes Absolute Auto 3800 /uL (1100-4500); Lymphocytes Percent Auto 32.2 % (25-40); Mean Corpuscular Volume 88.8 fL (80-100); Monocytes Absolute Auto 1000 /uL (0-900); Monocytes Percent Auto 8.1 % (3-14); Neutrophils Absolute Auto 6800 /uL (1500-7000); Neutrophils Percent Auto 57.6 % (50-75); Platelet Count 282 X10^3/uL (150-400); Red Cell Distribution Width 13.3 % (11.6-14.8); White Blood Cell Count 11.7 X10^3/uL (4.5-11.0)
[2019-09-17 21:54] LABS: Alanine Aminotransferase 37 IU/L (<35); Albumin 4.6 g/dL (3.5-5.0); Albumin Globulin Ratio 1.4 (1.0-2.8); Alkaline Phosphatase 58 U/L (38-126); Aspartate Aminotransferase 25 IU/L (14-36); BUN Creatinine Ratio 11.5 (6-22); Bilirubin Total 0.3 mg/dL (0.2-1.3); Blood Urea Nitrogen 9 mg/dL (7-17); Calcium 9.8 mg/dL (8.4-10.2); Carbon Dioxide 24 mmol/L (22-32); Chloride 102 mmol/L (98-107); Estimated Glomerular Filt Rate > 60.0 mL/min (>60); Globulin 3.3 g/dL (1.7-4.1); Glucose 107 mg/dL (70-100); HEMOLYSIS < 15 (0-50); Lipase 86 U/L (23-300); Potassium 3.7 mmol/L (3.4-5.1); Sodium 135 mmol/L (137-145); Total Protein 7.9 g/dL (6.3-8.2)
[2019-09-17] MEDS: SODIUM CHLORIDE 0.9% 1,000 ML 1000 ML IV (21:54)
[2019-09-17] MEDS: ONDANSETRON 4 MG/2 ML INJ IV (21:54)
[2019-09-17] MEDS: MORPHINE 4 MG/ML INJ IV ×2 (21:55→22:32)
--- NOTE | 2019-09-17 22:26 | PC.NURSE ---
Pt reports severe pain after US. Dr Desai notified, repeat dose of morphine 4mg IV ordered.
--- NOTE | 2019-09-17 22:32 | PC.NURSE ---
IV fluids infused.
[2019-09-17 22:33] VITALS: BP 96/67; PULSE 63; RESP 24; O2SAT 96
--- NOTE | 2019-09-17 22:49 | PC.NURSE ---
patient placed on 2L of O2 via NC due to her sats dropping to 88% oN RA after getting a dose of pain medication. provider aware and no new orders at this time.
--- NOTE | 2019-09-17 23:10 | PC.NURSE ---
Report given to Breonna JARRELL.
[2019-09-18] MEDS: HYDROCODONE/ACET 5/325 PREPACK 1 BOTTLE MISC (00:27)
[2019-09-18 00:41] VITALS: BP 101/55; PULSE 79; RESP 20; O2SAT 99
== END 2019-09-18 00:45 | disposition home or self-care (01) ==
PROVIDERS: Emergency Provider Emergency Medicine; PCP Family Medicine
DX: K80.50 Calculus of bile duct without cholangitis or cholecystitis without obstruction (principal); R00.1 Bradycardia, unspecified; R07.9 Chest pain, unspecified
CPT/HCPCS: 36415; 76705; 80053; 81003; 83690; 85025; 93005; 96361; 96374; 96375; 96376; 99284; J2270; J2405

== ENCOUNTER → 2019-10-25 08:12 | Outpatient (CLI) | payer OTHER, SELFPAY ==
--- NOTE | 2019-10-25 08:16 | DI.US.S_ITS ---
PROCEDURE: US ABDOMEN LIMITED INDICATIONS: FOLLOW-UP GALLSTONES TECHNIQUE: Real-time focused scanning was performed of the abdomen, with image documentation. COMPARISON: [facility], CT, ABDOMEN/PELVIS WITH CONTRAST, 10/16/2015, 0:45. [facility], US, ABDOMEN COMPLETE, 10/01/2015, 11:09. [facility], US, US ABDOMEN LIMITED, 09/17/2019, 22:10. FINDINGS: There are small gallstones and gallbladder sludge. No gallbladder wall thickening, pericholecystic fluid or sonographic Chaidez's sign. Visualized liver is normal. Common bile duct is normal in caliber measuring 3.1 mm. Visualized pancreas is normal. IMPRESSION: Cholelithiasis. No ultrasound findings to suggest acute cholecystitis. Dictated by: Enrique Landaverde M.D. on 10/25/2019 at 9:43 Approved by: Enrique Landaverde M.D. on 10/25/2019 at 9:45
--- NOTE | 2019-10-25 08:16 | DI.US.S_ITS ---
PROCEDURE: US OB >= 14 WEEKS FETUS INDICATIONS: ANATOMY OUTSIDE/PRIOR DATING DATA: Last menstrual period (LMP): 06/08/19. LMP-based estimated date of delivery (MIRYAM): 03/14/20. First dating scan (date and location): 10/25/19. Estimated date of delivery (MIRYAM) from first dating scan: . TECHNIQUE: Real-time scanning was performed of the fetus, with image documentation and biometric measurements. COMPARISON: None from this FINDINGS: General: A single living intrauterine gestation is present. Presentation: Vertex. Placenta: Placental position is posterior, without previa. Amniotic fluid index: 13.1 cm, normal range is 5-24 cm. heart rate: 136 beats per minute. Maternal cervical canal: 3.5 cm long. Normal lower limit is 2.5 cm. biometrics: Biparietal diameter: 4.9 cm equals 21 weeks 0 days Head circumference: 18 cm equals 20 weeks 3 days Abdominal circumference: 14.8 cm equals 20 weeks 0 days Femur length: 3.3 cm equals 20 weeks 1 day Estimated gestational age from initial scan: not applicable. Composite gestational age from present scan: 20 weeks 3 days Estimated weight and percentile: 337 g, 64th percentile Measurement variability for biometric dating: +/- 7 days from 14 weeks to 15 weeks 6 days gestation, +/- 10 days from 16 weeks to 21 weeks 6 days gestation, +/- 2 weeks from 22 weeks to 27 weeks 6 days gestation, +/- 3 weeks for 28 weeks gestation or later. weight reference: 4500 g or EFW >90/95% is considered macrosomia or large for gestational age. EFW <10% is small for gestational age. EFW 5% or less is considered intra-uterine growth restriction. Anatomic survey: Neuro: Ventricles are non-dilated at less than 10 mm. Cisterna magna is normal at 3-11 mm. Cerebellum is normal in size and morphology. Nuchal skin fold: Normal at less than 6 mm between 14-21 weeks gestational age. Face: The nose and lips are not well-seen. The facial profile is not seen. Spine: No evidence for spina bifida. Heart: 4-chambered heart is present, with normal ventricular outflow tracts. Diaphragm: Diaphragm is intact. Stomach: Left-sided stomach is present. Kidneys: No hydronephrosis. Normal is less than 5 mm in 2nd trimester, less than 7 mm in 3rd trimester. Cord: 3-vessel cord has orthotopic insertion. Bladder: Normal in size. Extremities: All 4 extremities identified. IMPRESSION: A single live intrauterine is seen. No significant discrepancy is found between the estimated gestational age based on these images and the estimated gestational age based upon the given date of the last menstrual period. No anatomic abnormalities are identified. The nose and lips are not well-seen. The facial profile is not seen. Dictated by: Cooper Bowen M.D. on 10/25/2019 at 10:05 Approved by: Cooper Bowen M.D. on 10/25/2019 at 10:07
== END ==
PROVIDERS: PCP Family Medicine; Referring Provider Family Medicine; Visit Provider Family Medicine
DX: Z36.89 Encounter for other specified antenatal screening (principal); O99.612 Diseases of the digestive system complicating pregnancy, second trimester; K80.20 Calculus of gallbladder without cholecystitis without obstruction; K82.8 Other specified diseases of gallbladder; Z3A.20 20 weeks gestation of pregnancy
CPT/HCPCS: 76705; 76811

== ENCOUNTER 2019-11-02 21:27 | Observation (INO) | payer OTHER, SELFPAY ==
[2019-11-02 21:50] VITALS: BP 99/67; PULSE 68; RESP 18; TEMP 36.9; O2SAT 99; BMI 25.3
--- NOTE | 2019-11-02 21:51 | ED.ABDPAIN ---
HPI - Abdominal Pain General Chief Complaint: Abdominal Pain Stated Complaint: states galbladder issue, 21 wks preg Time Seen by Provider: 11/02/19 21:51 Source: patient Mode of arrival: Ambulatory Limitations: no limitations History of Present Illness HPI narrative: 24-year-old female 21 weeks EGA without any cramping or vaginal bleeding or urinary symptoms with known gallbladder pathology here for evaluation of right upper quadrant abdominal pain and nausea. I evaluated this patient in the emergency department in the past. This is approximately 6 weeks ago. At that time she had a new onset right upper quadrant abdominal pain. He had normal LFTs and normal lipase. A right upper quadrant ultrasound was showed cholelithiasis without cholecystitis. We were able to obtain pain control with oral medications. She was discharged home with information to follow up with General surgery. She has not followed up with General surgery but has had a follow-up with her primary OB provider who according to the note couple weeks ago states the patient was maintaining symptom-free situation by a diet control. Patient states on the day of presentation she was having right upper quadrant abdominal pain which she states that it was maintained with Tylenol. She states that for dinner she did have a hamburger which she states was ?lean meat? approximately an hour and a half afterwards she developed right upper quadrant abdominal pain very similar to the symptoms that brought her to the emergency department 6 weeks ago. She did take the pain medication that she had at home without any improvement. No fevers. Related Data Home Medications Medication Instructions Recorded Confirmed prenat.vits,meir,yox-bevd-nombu 1 tab PO DAILY 08/06/19 11/03/19 doxylamine succinate [Unisom 25 mg PO BEDTIME PRN 08/24/19 11/03/19 (doxylamine)] vitamin B complex 1 tab PO BEDTIME 08/24/19 11/03/19 Previous Rx's Medication Instructions Recorded ondansetron 4 mg disintegrating 4 mg PO TID-QID PRN #10 tab 09/05/19 tablet Allergies Allergy/AdvReac Type Severity Reaction Status Date / Time Sulfa (Sulfonamide Allergy Intermediate Hives Verified 11/02/19 21:50 Antibiotics) [SULFA (SULFONAMIDE ANTIBIOTICS)] albuterol Allergy Mild Hyperventil Verified 11/02/19 21:50 ates caffeine Allergy Mild Very mild Verified 11/02/19 21:50 - has some now and then lactose Allergy Mild GI Upset Verified 11/02/19 21:50 Review of Systems Constitutional Constitutional: Denies fatigue and Denies fever(s) Cardiovascular Cardiovascular: Denies chest pain and Denies dyspnea Respiratory Respiratory: Denies dyspnea Gastrointestinal Gastrointestinal: Reports abdominal pain, Denies change in stool character, Denies cramping, Denies diarrhea, Reports nausea and Denies vomiting Genitourinary Genitourinary: Denies dysuria and Denies vaginal discharge Musculoskeletal Musculoskeletal: Reports back pain, Denies myalgias and Denies arthralgias Integumentary/Breasts Skin/Breast: Denies lesions and Denies rash Neurologic Neurologic: Denies behavioral changes Psychiatric Psychiatric: Denies behavioral changes Endocrine Endocrine: Denies fatigue Hematologic/Lymphatic Hematologic/Lymphatic: Denies easy bleeding and Denies easy bruising Patient History Medical History Anxiety (Acute) Constipation (Acute) Lactose intolerance (Acute) Family History Mother Gestational diabetes Family/Other Gestational diabetes Grandmother Non Hodgkin's lymphoma Grandfather Colon cancer Family/Other Cancer of kidney Family/Other Melanoma Father PTSD (post-traumatic stress disorder) Brother Depression Anxiety ADHD Eczema Sister Eczema Social History marital status: household members: spouse, family and children education level: high school (wants to go to Nursing School) occupational status: 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 ) current occupational exposures/hazards: No special lorraine needs: No Smoking Status: Never smoker alcohol intake: former Smoking Status: Never smoker alcohol intake frequency: 0-2 drinks per day Substance Use Type: does not use Exam Initial Vital Signs Initial Vital Signs: Vital Signs Temperature 98.4 F 11/02/19 21:50 Pulse Rate 68 11/02/19 21:50 Respiratory Rate 18 11/02/19 21:50 Blood Pressure 99/67 11/02/19 21:50 Pulse Oximetry 99 11/02/19 21:50 Const General: cooperative and well developed Limitations: mental status not altered HENMT Head: normal to inspection and normocephalic Resp Effort & Inspection: normal respiratory effort Auscultation: clear to auscultation bilaterally Cardio Rate: regular rate Rhythm: regular rhythm GI Inspection: non-distended Palpation: soft, No firm and tender (Right upper quadrant, positive Chaidez sign) Back/Spine/Pelvis Back: No CVA tenderness Skin Lesions: no lesions Rashes: no rashes Neuro General: alert and awake Cognition: normal cognition Speech: speech normal Extrem General: normal to inspection and capillary refill normal Psych Appearance: grossly normal and well kempt Scores GCS [place] coma scale eye opening: Spontaneous Sarath coma scale verbal response: Orientated Sarath coma scale motor response: Obey commands [place] coma scale total score: 15 Course Orders Ordered: ED Orders 11/02/19 21:53 US abdomen limited Stat 11/02/19 22:00 Complete Blood Count AUTO DIFF Stat Comprehensive Metabolic Panel Stat Lipase Stat Acetaminophen (Tylenol) 650 mg PO Q4HR PRN PRN Reason: Fever/Mild Pain (1-3) Hydromorphone HCl (Dilaudid) 0.5 mg IV Q4H PRN PRN Reason: Pain, Severe (7-10) Lactated Ringer's (Lactated Ringers) 1,000 mls @ 100 mls/hr IV CONT [facility] Last Admin: 11/03/19 01:51 Dose: 100 mls/hr Documented by: NICHOLAS Piperacillin/Tazobactam/Dextrose (Zosyn) 3.375 gm in 50 mls @ 100 mls/hr IV Q6H [facility] Last Admin: 11/03/19 01:54 Dose: 100 mls/hr Documented by: NICHOLAS Ondansetron HCl (Zofran) 4 mg IV Q4HR PRN PRN Reason: Nausea And Vomiting Discontinued Medications Hydromorphone HCl (Dilaudid) 0.5 mg IV NOW ONE Stop: 11/03/19 00:21 Last Admin: 11/03/19 00:26 Dose: 0.5 mg Documented by: KRISTY Sodium Chloride (Normal Saline 0.9%) 1,000 mls @ 1,000 mls/hr IV BOLUS ONE Stop: 11/02/19 23:37 Last Infusion: 11/02/19 23:00 Dose: 1,000 mls/hr Documented by: [email or web address] Admin: 11/02/19 22:00 Dose: 1,000 mls/hr Documented by: [email or web address] Morphine Sulfate (Morphine) 4 mg IV NOW ONE Stop: 11/02/19 22:14 Last Admin: 11/02/19 22:35 Dose: 4 mg Documented by: CTR.PWEAVE Morphine Sulfate (Morphine) 4 mg IV NOW ONE Stop: 11/02/19 22:55 Last Admin: 11/02/19 23:29 Dose: 4 mg Documented by: CTR.PWEAVE Ondansetron HCl (Zofran) 4 mg IV NOW ONE Stop: 11/02/19 22:14 Last Admin: 11/02/19 22:33 Dose: 4 mg Documented by: CTR.[email or web address] Vital Signs Vital signs: Vital Signs - 8 hr 11/02/19 21:50 11/02/19 22:40 11/02/19 22:41 Temperature 98.4 F Pulse Rate 68 62 61 Respiratory Rate 18 24 16 Blood Pressure 99/67 Blood Pressure [Left Arm] 100/64 100/64 Pulse Oximetry 99 100 100 11/02/19 23:20 11/02/19 23:25 11/03/19 00:15 Temperature Pulse Rate 52 L 59 L 60 Respiratory Rate 16 24 16 Blood Pressure Blood Pressure [Left Arm] 92/57 L 119/59 L 98/62 Pulse Oximetry 100 100 100 11/03/19 00:25 Temperature Pulse Rate 68 Respiratory Rate 14 Blood Pressure Blood Pressure [Left Arm] 90/55 L Pulse Oximetry 98 MDM - Abdominal Pain Medical Records Attestation: I reviewed the patient's medical records. Lab Data Attestation: I reviewed the patient's lab results. Result diagrams: 11/02/19 22:00 11/02/19 22:00 Labs: Lab Results 11/02/19 11/02/19 11/03/19 Range/Units 22:00 22:00 00:35 WBC 11.6 H (4.5-11.0) X10^3/uL RBC 3.73 L (4.0-5.2) X10^6/uL Hgb 11.8 L (12.0-16.0) g/dL Hct 34.5 L (36-46) % MCV 92.4 (80-100) fL MCH 31.7 (26-34) PG MCHC 34.3 (30-36) % RDW 13.1 (11.6-14.8) % Plt Count 257 (150-400) X10^3/uL Neut % (Auto) 62.1 (50-75) % Lymph % (Auto) 28.1 (25-40) % [place] % (Auto) 7.8 (3-14) % Eos % (Auto) 1.3 L (2-4) % Baso % (Auto) 0.7 (0-2) % Neut # (Auto) 7200 H (7232-3076) /uL Lymph # (Auto) 3300 (3011-0204) /uL [place] # (Auto) 900 (0-900) /uL Eos # (Auto) 100 (0-450) /uL Baso # (Auto) 100 (0-100) /uL Sodium 135 L (137-145) mmol/L Potassium 3.8 (3.4-5.1) mmol/L Chloride 104 (98-107) mmol/L Carbon Dioxide 22 (22-32) mmol/L BUN 10 (7-17) mg/dL Creatinine 0.64 (0.52-1.04) mg/dL Estimated GFR > 60.0 (>60) mL/min BUN/Creatinine Ratio 15.6 (6-22) Glucose 99 (70-100) mg/dL Calcium 9.2 (8.4-10.2) mg/dL Total Bilirubin 0.3 (0.2-1.3) mg/dL AST 27 (14-36) IU/L ALT 21 (<35) IU/L Alkaline Phosphatase 63 (38-126) U/L Total Protein 7.9 (6.3-8.2) g/dL Albumin 4.4 (3.5-5.0) g/dL Globulin 3.5 (1.7-4.1) g/dL Albumin/Globulin Ratio 1.3 (1.0-2.8) Lipase 66 (23-300) U/L COVID-19 PCR Negative (Negative) Imaging Data US - abdomen: Radiologist's Impression: Single live intrauterine gestation is noted with a heart rate of 120 beats per minute Cholelithiasis and a small amount of gallbladder sludge. No evidence of acute cholecystitis. No biliary ductal dilation MDM Narrative Medical decision making narrative: Patient has known gallbladder disease. Labs and ultrasound today show cholelithiasis without cholecystitis. Had a somewhat difficult time controlling the patient's pain with IV medicines here in the ER. I did discuss the case with Dr. Cota who was on-call for General surgery. Had initial discussion about whether not is was appropriate to admit the patient for potential surgery given the risks of this being in the 2nd trimester without signs of acute cholecystitis. I did discuss this with the patient. We did discuss that surgery in her current case would be for pain control not because of an infection. We did discuss options to include trying more pain medication is see we can improve her symptoms in discharging home and continue with her diet control versus admitting to the hospital. Patient states she was concerned that potentially her symptoms would return again in be worse or potentially develop worsening conditions such as acute cholecystitis. Had further discussions with General surgery. After these discussions decision was made to admit the patient under observation. Co bit test was performed secondary to potentially the patient having surgery tomorrow morning. Plan of a is to admit her for pain control and have a discussion with surgery in the morning if her symptoms are not controlled discuss risks and benefits of laparoscopic cholecystectomy. Patient expressed understanding agreement this plan. Discharge Plan Departure Patient Disposition: Admitted as Observation Clinical Impression: Cholelithiasis Qualifiers: Cholelithiasis location: gallbladder Cholecystitis presence: without cholecystitis Biliary obstruction: with biliary obstruction Qualified Code(s): K80.21 - Calculus of gallbladder without cholecystitis with obstruction Qualifiers: Weeks of gestation: 21 weeks Qualified Code(s): Z3A.21 - 21 weeks gestation of Discharge Date/Time: 11/03/19 01:15 Admit Date/Time: 11/03/19 00:37 Admit Provider: Jamilah Person
--- NOTE | 2019-11-02 21:53 | DI.US.S_ITS ---
PROCEDURE: US ABDOMEN LIMITED INDICATIONS: RIGHT UPPER QUADRANT PAIN TECHNIQUE: Real-time focused scanning was performed of the abdomen, with image documentation. COMPARISON: [facility], [place], US ABDOMEN LIMITED, 10/25/2019, 8:46. [facility], [place], ABDOMEN/PELVIS WITH CONTRAST, 10/16/2015, 0:45. FINDINGS: Imaged portions of the liver appear to be within normal limits. However, the entire liver was not imaged. No intrahepatic or extrahepatic biliary dilatation is identified. The common bile duct measures approximately 4-5 mm. The gallbladder is slightly prominent in size and contains multiple small layering gallstones within the dependent aspect of the gallbladder. There is no gallbladder wall thickening or pericholecystic fluid. The patient did exhibit a positive sonographic Chaidez's sign. The imaged portions of the pancreas appear to be within normal limits. The right kidney was not imaged. The inferior vena cava and abdominal aorta were also not imaged. A single live intrauterine is incidentally noted with heart motion detected at 120 beats per minute. No free fluid is seen within the upper abdomen. IMPRESSION: 1. Cholelithiasis without definite imaging findings of cholecystitis. However, the patient did exhibit a positive sonographic Chaidez sign. 2. Live intrauterine . Note: The preliminary report provided by Meilishuo. is concordant with the final report. Dictated by: Jamal Perez M.D. on 11/03/2019 at 8:04 Approved by: Jamal Perez M.D. on 11/03/2019 at 8:06
[2019-11-02] MEDS: SODIUM CHLORIDE 0.9% 1,000 ML 1000 ML IV (22:00)
[2019-11-02 22:17] LABS: Add Manual Diff / Slide Review NO; Basophils Absolute Auto 100 /uL (0-100); Basophils Percent Auto 0.7 % (0-2); Eosinophils Absolute Auto 100 /uL (0-450); Eosinophils Percent Auto 1.3 % (2-4); Hematocrit 34.5 % (36-46); Hemoglobin 11.8 g/dL (12.0-16.0); Lymphocytes Absolute Auto 3300 /uL (1100-4500); Lymphocytes Percent Auto 28.1 % (25-40); Mean Corpuscular HGB Conc 34.3 % (30-36); Mean Corpuscular Hemoglobin 31.7 PG (26-34); Mean Corpuscular Volume 92.4 fL (80-100); Monocytes Absolute Auto 900 /uL (0-900); Monocytes Percent Auto 7.8 % (3-14); Neutrophils Absolute Auto 7200 /uL (1500-7000); Neutrophils Percent Auto 62.1 % (50-75); Platelet Count 257 X10^3/uL (150-400); Red Blood Cell Count 3.73 X10^6/uL (4.0-5.2); Red Cell Distribution Width 13.1 % (11.6-14.8); White Blood Cell Count 11.6 X10^3/uL (4.5-11.0)
[2019-11-02 22:26] LABS: Alanine Aminotransferase 21 IU/L (<35); Albumin 4.4 g/dL (3.5-5.0); Albumin Globulin Ratio 1.3 (1.0-2.8); Alkaline Phosphatase 63 U/L (38-126); Aspartate Aminotransferase 27 IU/L (14-36); BUN Creatinine Ratio 15.6 (6-22); Bilirubin Total 0.3 mg/dL (0.2-1.3); Blood Urea Nitrogen 10 mg/dL (7-17); Calcium 9.2 mg/dL (8.4-10.2); Carbon Dioxide 22 mmol/L (22-32); Chloride 104 mmol/L (98-107); Estimated Glomerular Filt Rate > 60.0 mL/min (>60); Globulin 3.5 g/dL (1.7-4.1); Glucose 99 mg/dL (70-100); HEMOLYSIS < 15 (0-50); Lipase 66 U/L (23-300); Potassium 3.8 mmol/L (3.4-5.1); Sodium 135 mmol/L (137-145); Total Protein 7.9 g/dL (6.3-8.2)
[2019-11-02] MEDS: ONDANSETRON 4 MG/2 ML INJ IV (22:33)
[2019-11-02] MEDS: MORPHINE 4 MG/ML INJ IV ×2 (22:35→23:29)
[2019-11-02 22:40] VITALS: BP 100/64; PULSE 62; RESP 24; O2SAT 100
[2019-11-02 22:41] VITALS: BP 100/64; PULSE 61; RESP 16; O2SAT 100
[2019-11-02 23:20] VITALS: BP 92/57; PULSE 52; RESP 16; O2SAT 100
[2019-11-02 23:25] VITALS: BP 119/59; PULSE 59; RESP 24; O2SAT 100
[2019-11-03] VITALS (24 sets, daily range): BP systolic 82–105; BP diastolic 41–62; PULSE 52–113; RESP 14–21; TEMP 36.2–37.3; O2SAT 92–100; BMI 25.9
--- NOTE | 2019-11-03 | PATH_ITS ---
[facility] Accession Number: [id number] . 01 Material submitted: . gallbladder - GALLBLADDER AND CONTENTS . 01 Clinical history: . STATES GALLBLADDER ISSUE; 21 WKS PREG . 02 Diagnosis: Gallbladder, Cholecystectomy: Chronic cholecystitis with cholelithiasis. Negative for dysplasia and malignancy. [facility] 11/07/2019 1339 Local . 02 Electronically signed: . Elisa Herbert MD, Pathologist NPI- [id number] . 01 Gross description: . Received in formalin, labeled gallbladder and contents, is an intact gallbladder (length-6.4 cm, diameter-3.5 cm) with green smooth shiny serosa and a patent cystic duct. No lymph nodes are identified. The lumen contains dark green watery bile and multiple bright yellow gritty friable calculi (6.0 x 2.0 x 0.3 cm in aggregate). The mucosa is green smooth and flat. The wall is up to 0.1 cm thick. No nodules, masses or lesions are identified. Section code: (A1) cystic duct resection margin and two serial sections from the body; (A2) two longitudinal sections from the fundus. ([id number]) /MRV 11/06/2019 1057 Local . 02 Pathologist provided ICD-10: K80.60 . 02 CPT . 186483 Performed at: 01 [facility] [address] [id number] MD Anuel Jack MD Phone: [phone] Performed at: 02 [facility] [address] [place], [place] [id number] MD Elisa Herbert MD Phone: [phone]
[2019-11-03] MEDS: HYDROMORPHONE 0.5 MG INJ IV ×2 (00:26→20:42)
[2019-11-03 01:39] LABS: COVID19 -Nasal RAPID Negative (Negative)
[2019-11-03] MEDS: LACTATED RINGERS 1,000 ML 100 ML IV ×2 (01:51→17:04)
[2019-11-03] MEDS: PIPERACILLIN-TAZO 3.375 GM/50 ML FROZ.PIGGY IV ×2 (01:54→07:21)
--- NOTE | 2019-11-03 02:15 | PC.ADMIT ---
[id number] [facility] Admission Note: The patient,Jocelyn Lomax,24 y/o, was given written information regarding hospital policies, unit procedures and contact persons. Patient's smoking status: Never smoker. Vital Signs - 8 hr 11/02/19 21:50 11/02/19 22:40 11/02/19 22:41 Temperature 98.4 F Pulse Rate 68 62 61 Respiratory Rate 18 24 16 Blood Pressure 99/67 Blood Pressure [Left Arm] 100/64 100/64 Pulse Oximetry 99 100 100 11/02/19 23:20 11/02/19 23:25 11/03/19 00:15 Temperature Pulse Rate 52 L 59 L 60 Respiratory Rate 16 24 16 Blood Pressure Blood Pressure [Left Arm] 92/57 L 119/59 L 98/62 Pulse Oximetry 100 100 100 11/03/19 00:25 11/03/19 01:26 Temperature 98.3 F Pulse Rate 68 61 Respiratory Rate 14 16 Blood Pressure 93/53 L Blood Pressure [Left Arm] 90/55 L Pulse Oximetry 98 97 Patient arrived at 0120 via stretcher accompanied by ED RN and father, educated father about current hospital policies regarding visitors, he acknowledged and took home patients medications and wedding ring. 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 Patient acknowledged teaching.
[2019-11-03] MEDS: ONDANSETRON 4 MG/2 ML INJ IV (05:49)
--- NOTE | 2019-11-03 06:13 | PC.NURSE ---
[place] called in regards to patient's status d/t being [place] and getting emergency leave to return home. Case #[id number]
[2019-11-03 06:28] LABS: Add Manual Diff / Slide Review NO; Basophils Absolute Auto 100 /uL (0-100); Basophils Percent Auto 0.7 % (0-2); Eosinophils Absolute Auto 0 /uL (0-450); Eosinophils Percent Auto 0.3 % (2-4); Hematocrit 31.4 % (36-46); Hemoglobin 11.2 g/dL (12.0-16.0); Lymphocytes Absolute Auto 2000 /uL (1100-4500); Lymphocytes Percent Auto 16.1 % (25-40); Mean Corpuscular HGB Conc 35.7 % (30-36); Mean Corpuscular Hemoglobin 32.8 PG (26-34); Monocytes Absolute Auto 700 /uL (0-900); Monocytes Percent Auto 5.9 % (3-14); Neutrophils Absolute Auto 9800 /uL (1500-7000); Platelet Count 232 X10^3/uL (150-400); Red Blood Cell Count 3.42 X10^6/uL (4.0-5.2); Red Cell Distribution Width 13.7 % (11.6-14.8); White Blood Cell Count 12.7 X10^3/uL (4.5-11.0)
[2019-11-03 06:41] LABS: Alanine Aminotransferase 89 IU/L (<35); Albumin 3.4 g/dL (3.5-5.0); Albumin Globulin Ratio 1.1 (1.0-2.8); Alkaline Phosphatase 67 U/L (38-126); Aspartate Aminotransferase 140 IU/L (14-36); BUN Creatinine Ratio 12.7 (6-22); Bilirubin Total 0.5 mg/dL (0.2-1.3); Blood Urea Nitrogen 7 mg/dL (7-17); Calcium 8.4 mg/dL (8.4-10.2); Carbon Dioxide 22 mmol/L (22-32); Chloride 108 mmol/L (98-107); Estimated Glomerular Filt Rate > 60.0 mL/min (>60); Globulin 3.1 g/dL (1.7-4.1); Glucose 98 mg/dL (70-100); HEMOLYSIS < 15 (0-50); Potassium 3.9 mmol/L (3.4-5.1); Sodium 136 mmol/L (137-145); Total Protein 6.5 g/dL (6.3-8.2)
--- NOTE | 2019-11-03 07:52 | PC.NURSE ---
Day shift note: Notified Abdelrahman Sharma @ [phone] Re: case # [id number], spoke with Monica Valles, regarding patient surgery information, including time, approx. expected recovery time and surgeons name. Patient spouse in deployment. Patient awake, alert, and pleasantly calm. Heart tones performed at bedside by L& D nurse, 120's. Patient NPO since 11/01, jewelry removed, awaiting for surgical team.
--- NOTE | 2019-11-03 08:00 | PM.HP.1 ---
History of Present Illness History of Present Illness Date Patient Seen: 11/03/19 Time Patient Seen: 07:00 Chief complaint: states galbladder issue, 21 wks preg Narrative: This is a 24 yo woman currently 21 weeks with a healthy who came in during the night to the ER with acute RUQ pain and nausea. Her labs and US were consistent with early acute cholecystitis. Her pain and nausea were not well controlled in the ER. This is her second major gall bladder attack during . Her prior attack resolved relatively quickly after a dose of pain medication. She has been sticking to a low-fat diet, but had a hamburger yesterday. About two hours after eating she started having severe RUQ pain and mid back pain, which caused her to come into the ER. This morning she continues to have mid back pain and nausea, which are partially controlled with Dilaudid and zofran. She has gotten Zosyn overnight, and her WBC and LFT's are increased this AM. Alk phos and bilirubin are normal, consistent with non obstructed common bile duct. Her US showed no enlarged CBD. ROS: Thirteen system review is otherwise negative other than as mentioned below and in HPI. PE: GENERAL: Alert, uncomfortable, in no acute distress. Appears stated age. Answers questions promptly and appropriately. Vital signs noted. HENT: Normocephalic, atraumatic. Hearing intact. Oral mucosa is pink and moist. EYES: Conjunctiva pink, sclera white, no periorbital swelling. CARDIOVASCULAR: Regular rate. No pedal edema. RESPIRATORY: Non-tachypneic, breathing comfortably on room air. GASTROINTESTINAL: Abdomen soft, gravid c/w 21 week , minimal TTP in RUQ, non distended GENITALURINARY: Mild right flank TTP MUSCULOSKELETAL: Equal tone and mass bilaterally. SKIN: Warm, dry, soft, appropriate color for ethnicity. No other lesions, rashes, or wounds. NEURO: Alert and Oriented X 3. No gross sensory deficits, or cognitive issues. PSYCH: Appropriate affect and mood. Patient History Medical History Anxiety (Acute) Constipation (Acute) Lactose intolerance (Acute) Family & Social History Family History Mother Gestational diabetes Family/Other Gestational diabetes Grandmother Non Hodgkin's lymphoma Grandfather Colon cancer Family/Other Cancer of kidney Family/Other Melanoma Father PTSD (post-traumatic stress disorder) Brother Depression Anxiety ADHD Eczema Sister Eczema Social History: household members spouse,family,children Prior Living Arrangements House Safety & Behavioral: Feels Safe in Current Yes Environment Been Physically Hurt or No Threatened By a Person Suicidal Ideation Description None Suicide Plan Description No Plan Tobacco & Substance use: Smoking Status Never smoker alcohol intake former alcohol intake frequency 0-2 drinks per day Substance Use Type does not use Meds Home Medications and Allergies Home Medications Medication Instructions Recorded Confirmed Type prenat.vits,meir,law-rukj-azgoo 1 tab PO DAILY 08/06/19 11/03/19 History doxylamine succinate [Unisom 25 mg PO BEDTIME PRN 08/24/19 11/03/19 History (doxylamine)] vitamin B complex 1 tab PO BEDTIME 08/24/19 11/03/19 History ondansetron 4 mg disintegrating 4 mg PO TID-QID PRN #10 tab 09/05/19 11/03/19 Rx tablet Allergies Allergy/AdvReac Type Severity Reaction Status Date / Time Sulfa (Sulfonamide Allergy Intermediate Hives Verified 11/02/19 21:50 Antibiotics) [SULFA (SULFONAMIDE ANTIBIOTICS)] albuterol Allergy Mild Hyperventil Verified 11/02/19 21:50 ates lactose Allergy Mild GI Upset Verified 11/02/19 21:50 Exam Vital Signs (past 8 hours): - 11/03/19 00:15 11/03/19 00:25 11/03/19 01:20 Temperature 97.4 F L Pulse Rate 60 68 62 Respiratory Rate 16 14 16 Blood Pressure 104/58 L Blood Pressure [Left Arm] 98/62 90/55 L Pulse Oximetry 100 98 100 11/03/19 01:26 11/03/19 05:30 Temperature 98.3 F 98.1 F Pulse Rate 61 52 L Respiratory Rate 16 16 Blood Pressure 93/53 L 95/46 L Blood Pressure [Left Arm] Pulse Oximetry 97 100 Oxygen Delivery Method Room Air Oxygen Flow Rate 0 Objective Imaging US - abdomen: My impression: Intrauterine , gall bladder sludge Radiologist's impression: Single live intrauterine gestation is noted with a heart rate of 120 beats per minute Cholelithiasis and a small amount of gallbladder sludge. No evidence of acute cholecystitis. No biliary ductal dilation Labs Result Diagrams: 11/03/19 06:24 11/03/19 06:24 Labs: Laboratory Results - last 24 hr 11/02/19 11/02/19 11/03/19 22:00 22:00 00:35 WBC 11.6 H RBC 3.73 L Hgb 11.8 L Hct 34.5 L MCV 92.4 MCH 31.7 MCHC 34.3 RDW 13.1 Plt Count 257 Neut % (Auto) 62.1 Lymph % (Auto) 28.1 [place] % (Auto) 7.8 Eos % (Auto) 1.3 L Baso % (Auto) 0.7 Neut # (Auto) 7200 H Lymph # (Auto) 3300 [place] # (Auto) 900 Eos # (Auto) 100 Baso # (Auto) 100 Sodium 135 L Potassium 3.8 Chloride 104 Carbon Dioxide 22 BUN 10 Creatinine 0.64 Estimated GFR > 60.0 BUN/Creatinine Ratio 15.6 Glucose 99 Calcium 9.2 Total Bilirubin 0.3 AST 27 ALT 21 Alkaline Phosphatase 63 Total Protein 7.9 Albumin 4.4 Globulin 3.5 Albumin/Globulin Ratio 1.3 Lipase 66 COVID-19 PCR Negative 11/03/19 11/03/19 06:24 06:24 WBC 12.7 H RBC 3.42 L Hgb 11.2 L Hct 31.4 L MCV 92.0 MCH 32.8 MCHC 35.7 RDW 13.7 Plt Count 232 Neut % (Auto) 77.0 H Lymph % (Auto) 16.1 L [place] % (Auto) 5.9 Eos % (Auto) 0.3 L Baso % (Auto) 0.7 Neut # (Auto) 9800 H Lymph # (Auto) 2000 [place] # (Auto) 700 Eos # (Auto) 0 Baso # (Auto) 100 Sodium 136 L Potassium 3.9 Chloride 108 H Carbon Dioxide 22 BUN 7 Creatinine 0.55 Estimated GFR > 60.0 BUN/Creatinine Ratio 12.7 Glucose 98 Calcium 8.4 Total Bilirubin 0.5 AST 140 H ALT 89 H Alkaline Phosphatase 67 Total Protein 6.5 Albumin 3.4 L Globulin 3.1 Albumin/Globulin Ratio 1.1 Lipase COVID-19 PCR Assessment & Plan Assessment and plan (1) Cholelithiasis: Qualifiers: Biliary obstruction: with biliary obstruction Cholecystitis presence: without cholecystitis Cholelithiasis location: gallbladder Qualified Code(s): K80.21 - Calculus of gallbladder without cholecystitis with obstruction Current visit: Yes Status: Acute (2) : Qualifiers: Weeks of gestation: 21 weeks Qualified Code(s): Z3A.21 - 21 weeks gestation of Current visit: Yes Status: Acute (3) Transaminitis: Current visit: Yes Status: Acute (4) Acute cholecystitis: Current visit: Yes Status: Acute (5) Leukocytosis: Current visit: Yes Status: Acute Assessment & Plan narrative: This is a 24-year-old woman with acute cholecystitis in the setting of second-trimester . Her symptoms have not resolved with pain medication, and antiemetic. Her white blood cell count and transaminases are increasing this morning. I have discussed with her the risks and benefits of laparoscopic possible open cholecystectomy, and the potential risk to her and to her unborn baby. I explained to her that statistically most healthy women do well as well as the baby in the course of laparoscopic or even open cholecystectomy. Given this is her 2nd episode, and her symptoms are not resolving, I think that she is at high risk to have a significant cholecystitis, which is a greater risk to her and to her unborn baby. Specifically we discussed the risk of bleeding, infection, damage to nearby structures, bile leak, bile duct injury, need for additional procedures, need for transfer to another hospital, distress, or demise. The patient verbalizes understanding and desires to proceed with laparoscopic possible open cholecystectomy. 55 minutes were spent face to face with the patient. More than 50% of the time was spent in counseling and co-ordination of care regarding prolonged discussion of the risks and benefit of surgery specifically as regards to her unborn baby, expected preop intraop and postop course, with significant time to answer patient questions. Plan: OB nurse to check heart tones prior to surgery Laparoscopic possible open cholecystectomy today NPO, IV Zosyn, pain medication and antiemetic as needed COVID-19 COVID-19 status: Negative Time Spent With Patient Time with patient: Greater than 35 minutes Quality VTE Deep Vein Thrombosis/Pulmonary Embolism Present on Admission: No
[2019-11-03] MEDS: LACTATED RINGERS 1,000 ML 42 ML IV ×2 (08:40→11:00)
--- NOTE | 2019-11-03 08:53 | SUR.HOLD ---
Pt brought down to pre op, consents signed, questions answered, pt left pre op area in stable condition.
[2019-11-03] MEDS: BUPIVACAINE 0.25% W/ EPI 30 ML VIAL INJ (09:17)
--- NOTE | 2019-11-03 10:03 | CM.DANOTE ---
Discharge Planning/Care Management DCP: assessment: case received, EMR reviewed. Discussed in Team Rounds. Went to room to check in with pt prior to Rounds but noted that she was already off the unit and to surgery. Pt is a 24 year old female who admitted early this morning to care of [facility]: Dr. Person. PCP: Dr. Eliza Watkins Payer: José Miguel Leos. Pt is 21 weeks . After discussion with Dr. Person she has elected to proceed with plan for cholecystectomy: laproscopic with possible change to open prn. RN Coordinator Kedar noted in Team Rounds that pt's is currently deployed and nursing team is attempting to help contact him. Pt, per documentation, has parents in the area who are involved. P: follow: DCP team will check in with pt after surgery to assist with d/c issues and options. CM Discharge Assessment Start: 11/03/19 09:57 Freq: Status: Active Protocol: Document 11/03/19 09:58 ITV (Rec: 11/03/19 10:03 ITV [id number]) Discharge Planning Assessment Advance Directives? No History Provided By Medical Record Prior Living Arrangements House Household Members spouse,family,children Independent with ADL's Yes Is patient alert and oriented? Yes Review Status In Process
--- NOTE | 2019-11-03 10:44 | PM.OP.1 ---
Operative Date/Time/Diagnoses Date of procedure: 11/03/19 Time of procedure: 10:44 Pre-op diagnosis: Acute cholecystitis Post-op diagnosis: same Procedure & Clinicians Procedure: Laparoscopic cholecystectomy in second trimester of Same procedure as scheduled: Yes Indications: Acute cholecystitis complicating a 21 week Surgeon: Jamilah Person Click Yes if Unassisted: Yes Anesthesia Type: General Operative Notes Findings: Pericholecystic edema, translocation of bile across the gall bladder wall Closure Type: primary Specimen(s): other (gall bladder) Estimated Blood Loss (mL): 1 Blood products transfused: none Procedure in detail: The patient was brought into the operating room and placed supine on the OR table. Sequential compression devices were placed on both legs and turned on. Appropriate perioperative antibiotics were given prior to the start of surgery. General anesthesia was induced the patient was intubated. The abdomen was prepped and draped in sterile fashion. Surgical time-out was conducted. Local anesthetic was injected under the skin just superior to the umbilicus and a 1cm vertical incision was made at this site. Dissection was carried down to the fascia, which was opened with cautery. The peritoneum was grasped and opened with [place]. Two 0-Vicryl stay sutures were placed through the peritoneum and fascia, and a 12mm Jo port was placed in the usual fashion. The abdomen was then insufflated to 15mmHg. The camera was placed int he port during insufflation. Once the camera was inside the abdomen I took a look around. There was no injury from port placement. The large gravid uterus was seen several cm above the level of the umbilicus. It appeared normal and uninjured. Two additional ports were placed in the usual fashion in the right upper quadrant and a 10 mm port was placed in the epigastrium after infiltration of local anesthetic. Through the 2 lateral ports the gallbladder was grasped and elevated and the infundibulum was retracted laterally to the patient's right. This exposed the gallbladder hilum and allowed for dissection of the cystic duct and cystic artery. There was quite a bit of edema around the gallbladder hilum. The gallbladder itself was tense and quite green, with the appearance of translocation of bile across the gallbladder wall. I began dissecting out the hilar structures, and the cystic duct and artery came into view. There was a good critical view of safety, with the cystic duct going directly into the infundibulum, with liver seen behind, and no other structures in the way. There were several branches of the cystic artery, which were each taken individually with surgical clips, and divided. At this point I doubly clipped the cystic duct on the patient's side, and 1 clip was placed on the gallbladder side, and I divided between them with Metzenbaum scissors. Following this the gallbladder was gradually dissected free from the liver. There was quite a bit of edema, and hypervascularity of the scar tissue between the gallbladder and the liver. Several small vessels had to be controlled with cautery. Once the gallbladder was entirely freed, it was placed inside an Endo-Catch bag and removed through the epigastric port site. I did not have to enlarge the epigastric site in order to get the gallbladder out. Once it was out and passed off to the back table I then took another look inside the abdomen. I suctioned clean any remaining blood or fluid on the lateral side of the liver and in the subhepatic space. There was no active bleeding or leaking of bile from the gallbladder fossa or from the clipped stumps of the cystic duct and artery. I used the Bora Caputo to pass transabdominal sutures through the epigastric port site and the umbilical port site, and removed both ports under direct vision. Both port sites appeared well closed, and the fascia felt well closed from the outside. I gave some extra local anesthetic at these 2 sites, for a total of 30 mL of 0.25% Marcaine with epinephrine for the entire procedure. At this point the insufflation was removed from the abdomen and the epigastric and umbilical port sites were closed with additional 3 O Vicryl in the subcutaneous layers, and 4 Monocryl in the skin. The remaining port sites were closed with 4 Monocryl in the skin. Each port site was sealed with Dermabond. This concluded the procedure. At this point the needle sponge and instrument counts were correct. The gallbladder was passed off the table for pathology. Patient was awakened from anesthesia and extubated. She was transferred to the postanesthesia care unit in stable condition. heart tones were monitored in the PACU, and were noted to be 130-131, and regular. Complications: none Post-operative Condition: stable Disposition: PACU
[2019-11-03] MEDS: fentaNYL 100 MCG/2 ML INJ IV (11:04)
--- NOTE | 2019-11-03 11:27 | SUR.PHASEI ---
BP in 80's systolyc,BP low preop, pt stated that she runs a low BP normally. IV fluid rate increased. BP reponded. Pt's pain treated with fentanyl, now tolerable. Taking ice chips well, dr juárez to bedside, spoke with pt. Report called. 02 placed, now weaned off.
--- NOTE | 2019-11-03 12:07 | PC.NURSE ---
Addendum entered by Glenny Becerril R.N. 11/03/19 12:20: Patient also in contact with Father and spouse via phone. Addendum entered by Glenny Becerril R.N. 11/03/19 12:16: Was notified by PACU nurse of Dr. Person contact with Joel in regards to patient surgical update. Dr. Askew also update patients Father. Original Note: Day shift: Received patient from PACU by Aurora RN, patient awake and alert, VSS and afebrile. SCDs placed upon arrival, cont, pulse ox. On RA, sats 99%. Up OOB with SBA, voided. Re oriented to room, environment, and plan of care. Call light within reach, calls appropriately for staff assistance.
--- NOTE | 2019-11-03 12:08 | SUR.PHASEI ---
Late entry: Pt left with Jocelyn in room, instable condition, Mary Alice RN from the center came and did heart tones while pt in PACU, results 130-131. Dr. Raza xavier.
[2019-11-03] MEDS: OXYCODONE IR 5 MG TABLET PO (12:41)
[2019-11-03] MEDS: OXYCODONE IR 10 MG TABLET PO ×2 (14:06→19:23)
[2019-11-04] MEDS: LACTATED RINGERS 1,000 ML 100 ML IV (02:29)
[2019-11-04] MEDS: OXYCODONE IR 10 MG TABLET PO (02:29)
[2019-11-04 04:45] VITALS: BP 114/49; PULSE 75; RESP 19; TEMP 36.5; O2SAT 98
[2019-11-04 05:46] LABS: Add Manual Diff / Slide Review NO; Basophils Absolute Auto 0 /uL (0-100); Basophils Percent Auto 0.1 % (0-2); Eosinophils Absolute Auto 0 /uL (0-450); Eosinophils Percent Auto 0.3 % (2-4); Hemoglobin 9.6 g/dL (12.0-16.0); Lymphocytes Absolute Auto 2600 /uL (1100-4500); Lymphocytes Percent Auto 21.3 % (25-40); Mean Corpuscular HGB Conc 34.3 % (30-36); Mean Corpuscular Hemoglobin 31.9 PG (26-34); Mean Corpuscular Volume 93.2 fL (80-100); Monocytes Absolute Auto 900 /uL (0-900); Monocytes Percent Auto 7.1 % (3-14); Neutrophils Absolute Auto 8600 /uL (1500-7000); Neutrophils Percent Auto 71.2 % (50-75); Platelet Count 204 X10^3/uL (150-400); Red Blood Cell Count 3.01 X10^6/uL (4.0-5.2); Red Cell Distribution Width 13.6 % (11.6-14.8); White Blood Cell Count 12.1 X10^3/uL (4.5-11.0)
--- NOTE | 2019-11-04 05:48 | PC.NURSE ---
heart tones doppler midline above pubic bone 142bpm
[2019-11-04 05:51] LABS: Alanine Aminotransferase 68 IU/L (<35); Alkaline Phosphatase 66 U/L (38-126); Aspartate Aminotransferase 57 IU/L (14-36); BUN Creatinine Ratio 7.8 (6-22); Bilirubin Total 0.3 mg/dL (0.2-1.3); Blood Urea Nitrogen 4 mg/dL (7-17); Calcium 8.3 mg/dL (8.4-10.2); Carbon Dioxide 24 mmol/L (22-32); Chloride 108 mmol/L (98-107); Estimated Glomerular Filt Rate > 60.0 mL/min (>60); Globulin 2.9 g/dL (1.7-4.1); Glucose 84 mg/dL (70-100); HEMOLYSIS < 15 (0-50); Potassium 3.5 mmol/L (3.4-5.1); Sodium 137 mmol/L (137-145); Total Protein 5.9 g/dL (6.3-8.2)
[2019-11-04] MEDS: ACETAMINOPHEN 325 MG TABLET 650 MG PO ×2 (07:00→10:11)
[2019-11-04 08:18] VITALS: BP 92/49; PULSE 81; RESP 16; TEMP 36.9; O2SAT 100
--- NOTE | 2019-11-04 09:03 | P.DS_ITS ---
History of Present Illness History of Present Illness Chief complaint: states galbladder issue, 21 wks preg Narrative: This is a 24 yo woman currently 21 weeks with a healthy who came in during the night to the ER with acute RUQ pain and nausea. Her labs and US were consistent with early acute cholecystitis. Her pain and nausea were not well controlled in the ER. This is her second major gall bladder attack during . Her prior attack resolved relatively quickly after a dose of pain medication. She has been sticking to a low-fat diet, but had a hamburger yesterday. About two hours after eating she started having severe RUQ pain and mid back pain, which caused her to come into the ER. This morning she continues to have mid back pain and nausea, which are partially co ntrolled with Dilaudid and zofran. She has gotten Zosyn overnight, and her WBC and LFT's are increased this AM. Alk phos and bilirubin are normal, consistent with non obstructed common bile duct. Her US showed no enlarged CBD. ROS: Thirteen system review is otherwise negative other than as mentioned below and in HPI. PE: GENERAL: Alert, uncomfortable, in no acute distress. Appears stated age. Answers questions promptly and appropriately. Vital signs noted. HENT: Normocephalic, atraumatic. Hearing intact. Oral mucosa is pink and moist. EYES: Conjunctiva pink, sclera white, no periorbital swelling. CARDIOVASCULAR: Regular rate. No pedal edema. RESPIRATORY: Non-tachypneic, breathing comfortably on room air. GASTROINTESTINAL: Abdomen soft, gravid c/w 21 week , minimal TTP in RUQ, non distended GENITALURINARY: Mild right flank TTP MUSCULOSKELETAL: Equal tone and mass bilaterally. SKIN: Warm, dry, soft, appropriate color for ethnicity. No other lesions, rashes, or wounds. NEURO: Alert and Oriented X 3. No gross sensory deficits, or cognitive issues. PSYCH: Appropriate affect and mood. Discharge Providers Provider Date of admission: 11/03/19 00:37 Discharge Date: 11/04/19 Primary care physician: Ruma Watkins MD Discharge provider: Jamilah Person MD Summary Hospital Course Discharge Diagnosis: Acute cholecystitis complicating Hospital Course: Pt was admitted overnight, repeat labs were drawn in the AM with worsening leukocytosis and LFT's. Discussion was had regarding risk and benefits of lap neel especially in the setting of . The patient elected to proceed with surgery. She tolerated the procedure well and stayed overnight for pain control. Her pain was improved and was well controlled with PO pain meds on POD#1. Labs were improved/stable and appropriate for discharge. Strict return precautions were given including nausea, vomiting, fevers, worsen ing pain, light headedness. Status at Discharge Cognitive/behavioral status at discharge: at baseline, oriented Functional status at discharge: independent ambulation Overall status at discharge: patient is progressing back to baseline Time Spent with Patient Time spent: Greater than 30 minutes Exam Vital Signs (past 8 hours): - 11/04/19 04:45 11/04/19 08:18 Temperature 97.7 F 98.5 F Pulse Rate 75 81 Respiratory Rate 19 16 Blood Pressure 114/49 L 92/49 L Pulse Oximetry 98 100 Oxygen Delivery Method Room Air Oxygen Flow Rate 0 Narrative Exam Narrative: alert, oriented, fairly comfortable incisions c/d/i; abdomen soft, gravid, appropraite TTP for POD#1 s/p lap neel no LE edema appropriate mood/affect non tachypneic respirations normal heart rate, no LE edema Objective Imaging US - abdomen: My impression: Intrauterine , gall bladder sludge Radiologist's impression: Single live intrauterine gestation is noted with a heart rate of 120 beats per minute Cholelithiasis and a small amount of gallbladder sludge. No evidence of acute cholecystitis. No biliary ductal dilation Labs Result Diagrams: 11/04/19 05:15 11/04/19 05:15 Labs: Laboratory Results - last 24 hr 11/04/19 11/04/19 05:15 05:15 WBC 12.1 H RBC 3.01 L Hgb 9.6 L Hct 28.0 L MCV 93.2 MCH 31.9 MCHC 34.3 RDW 13.6 Plt Count 204 Neut % (Auto) 71.2 Lymph % (Auto) 21.3 L [place] % (Auto) 7.1 Eos % (Auto) 0.3 L Baso % (Auto) 0.1 Neut # (Auto) 8600 H Lymph # (Auto) 2600 [place] # (Auto) 900 Eos # (Auto) 0 Baso # (Auto) 0 Sodium 137 Potassium 3.5 Chloride 108 H Carbon Dioxide 24 BUN 4 L Creatinine 0.51 L Estimated GFR > 60.0 BUN/Creatinine Ratio 7.8 Glucose 84 Calcium 8.3 L Total Bilirubin 0.3 AST 57 H ALT 68 H Alkaline Phosphatase 66 Total Protein 5.9 L Albumin 3.0 L Globulin 2.9 Albumin/Globulin Ratio 1.0 Discharge Plan Discharge Plan Patient Disposition: Home Discharge comment: You will be prescribed a narcotic pain medication. You may also use Tylenol/ Acetaminophen for pain after surgery. Make sure you do not take more than 3000 mg of Acetaminophen per day from any source. There may be Acetaminophen in cold medications or headache remedies. Make sure to take a stool softener or laxative of your choice to prevent constipation from the narcotic pain medication. If you are not able have a bowel movement 24 hours after surgery, or you feel constipated please take an additional laxative such as MiraLax. Avoid any straining on the toilet. Avoid heavy lifting, pulling, or pushing more than 10 lbs or doing other activities that strain the abdomen or increase the abdominal pressure such as sit-ups, core work outs, and attempt to prevent frequent coughing and con stipation for four weeks after surgery. If you have fevers, jaundice, intractable nausea/vomiting, or intractable pain please call the doctor's office or if symptoms are severe come into the ER. If you call after hours please choose the option to contact the surgeon talent acquisition program manager rather than leaving a message. Discharge orders & Medications Prescriptions: New oxycodone 5 mg tablet 5 mg PO Q4H PRN (Reason: post operative pain) Qty: 30 RF: 0 Continued prenat.vits,meir,[id number] Tablet 1 tab PO DAILY RF: 0 vitamin B complex Tablet 1 tab PO BEDTIME RF: 0 Unisom (doxylamine) 25 mg Tablet 25 mg PO BEDTIME PRN (Reason: Nausea) RF: 0 Discontinued ondansetron 4 mg tablet,disintegrating 4 mg PO TID-QID PRN (Reason: nausea and vomiting) Qty: 10 RF: 0 Follow up/Referrals: Ruma Watkins MD [Primary Care Provider] - Jamilah Person MD [Physician] - (please call on Tuesday to make a follow up appointment to be seen in 1-2 weeks after surgery.) Diet/Activity/Treatments Diet: Diet as Tolerated and Regular Skin/Wound/Dressing Care Report to your healthcare provider any signs of infection, such as:: chills, fever, night sweats, increased pain, unusual drainage and unusual redness Visit Report/Discharge Packet Instructions: DI for Cholecystectomy, DI for Laparoscopy, DI for Prescription Opioid Use, [facility]: Wound Care Discharge Data Primary Care Provider: Ruma Watkins Attending Provider: Jamilah Person Admit Date/Time: 11/03/19 00:37 Discharges patient from system. Discharge Date/Time: 11/04/19 11:15 Quality VTE Deep Vein Thrombosis/Pulmonary Embolism Present on Admission: No
--- NOTE | 2019-11-04 10:34 | PC.NURSE ---
Day shift note: Discharge instructions given to patient including new RX, discussed importance of F/U with Raza Valdez in 1-2 weeks, patient to make appointment on Tuesday. VSS and afebrile, independently ambulating in room, voiding. Verbalized understanding of instructions, including diet, activity restrictions, and s/sx of infections. Discharge home with parents via private vehicle in stable condition.
== END 2019-11-04 11:15 | disposition home or self-care (01) ==
LOC: ED 11-03 00:30 → AC 11-03 00:38
PROVIDERS: Admitting Provider Surgery; Emergency Provider Emergency Medicine; PCP Family Medicine; Visit Provider Surgery
PROC: 0FT44ZZ Resection of Gallbladder, Percutaneous Endoscopic Approach (ICD-10-PCS; CPT 47562; principal; 2019-11-03 08:30)
DX: K80.00 Calculus of gallbladder with acute cholecystitis without obstruction (principal); R10.11 Right upper quadrant pain; Z3A.21 21 weeks gestation of pregnancy; Z11.59 Encounter for screening for other viral diseases
CPT/HCPCS: 47562; 36415; 76705; 80053; 83690; 85025; 87635; 96361; 96365; 96375; 96376; 99220; 99284; G0378; J1100; J1170; J1885; J2270; J2405; J2543; J2704; J3010

== ENCOUNTER → 2019-11-19 14:46 | Outpatient (CLI) | payer OTHER, SELFPAY ==
[2019-11-03 01:29] VITALS: BMI 25.9
--- NOTE | 2019-11-19 14:47 | DI.US.S_ITS ---
PROCEDURE: US OB LIMITED INDICATIONS: FOLLOW-UP ANATOMY OUTSIDE/PRIOR DATING DATA: Last menstrual period (LMP): 06/08/19. LMP-based estimated date of delivery (MIRYAM): 03/14/20. First dating scan (date and location): 10/25/19. Estimated date of delivery (MIRYAM) from first dating scan: 03/10/20. TECHNIQUE: Real-time scanning was performed of the fetus, with image documentation. Endovaginal scanning: Not needed COMPARISON: [facility], ABDOMEN LIMITED, 11/02/2019, 22:25. [facility], OB >= 14 WEEKS FETUS, 10/25/2019, 8:56. [facility], ABDOMEN LIMITED, 10/25/2019, 8:46. [facility], ABDOMEN LIMITED, 09/17/2019, 22:10. [facility], OB LIMITED, 01/31/2018, 9:28. FINDINGS: A single living intrauterine gestation is present. Presentation: Vertex. Placenta: Placental position is posterior, without previa. Amniotic fluid index: 20.1 cm, normal range is 5-24 cm. heart rate: 141 beats per minute. Maternal cervical canal: 3.5 cm long. Normal lower limit is 2.5 cm. Estimated gestational age from initial scan: 24 weeks 0 days. facial area was not well-visualized on prior anatomic survey and currently is very well-visualized and appears normal. IMPRESSION: Normal facial profile, completion anatomic survey. The delivery date is projected to be centered on 03/10/20. Dictated by: Reagan Peguero M.D. on 11/19/2019 at 15:25 Approved by: Reagan Peguero M.D. on 11/19/2019 at 15:28
== END ==
PROVIDERS: PCP Family Medicine; Referring Provider Family Medicine; Visit Provider Family Medicine
DX: Z36.2 Encounter for other antenatal screening follow-up (principal); Z3A.24 24 weeks gestation of pregnancy
CPT/HCPCS: 76815

== ENCOUNTER → 2020-08-29 09:04 | Outpatient (CLI) | payer OTHER, SELFPAY ==
[2019-11-03 01:29] VITALS: BMI 25.9
[2020-08-29 09:43] LABS: COVID19 -Nasal RAPID Negative (Negative)
[2020-08-29 10:01] LABS: Influenza A - CEPHEID Flu A NEGATIVE (NEGATIVE); Influenza B - CEPHEID Flu B NEGATIVE (NEGATIVE)
== END ==
PROVIDERS: PCP Family Medicine; Visit Provider Nurse Practitioner Family
DX: R68.89 Other general symptoms and signs (principal); R52 Pain, unspecified; Z20.822 Contact with and (suspected) exposure to COVID-19
CPT/HCPCS: 87502; 87635